=== PATIENT | male | born 1985 | race Caucasian/White ===

== ENCOUNTER → 2018-11-15 10:09 | Outpatient (CLI) | payer OTHER, MEDICAID, SELFPAY ==
--- NOTE | 2018-11-15 | DI.US.S_ITS ---
PROCEDURE: US ABDOMEN COMPLETE INDICATIONS: CHRONIC HEPATITIS C TECHNIQUE: Real-time scanning was performed of the abdominal and retroperitoneal organs, with image documentation. COMPARISON: None. FINDINGS: Liver: Liver is normal in size and homogeneous in echotexture. 2 hyperechoic focus involving the anterior left hepatic lobe measuring 1.3 x 1.1 x 1.0 cm. Gallbladder: No gallstones identified. Normal gallbladder wall. No pericholecystic fluid. Negative sonographic Case sign. Biliary ducts: Intrahepatic bile ducts are non-dilated. Extrahepatic bile duct caliber measures 5.7 mm. Normal is 6-7 mm or less in diameter, or 10 mm or less post-cholecystectomy. Pancreas: Not visualized. Spleen: Spleen is normal in size and homogeneous in echotexture. Kidneys: Kidneys are normal in size and echotexture. Right kidney measures 10.8 cm long; left kidney measures 11.3 cm long. No hydronephrosis or nephrolithiasis. No solid masses. Aorta: Visualized aorta is normal in caliber at less than 3 cm. Iliacs: Proximal common iliac arteries are normal in caliber at less than 2.5 cm. IVC: Intrahepatic inferior vena cava is patent. Miscellaneous: No free abdominal fluid. IMPRESSION: 1. Probable cavernous hemangioma present given the sonographic appearance. Recommend sequential follow up sonography at 6, 12 and 24 month intervals for surveillance. Dictated by: Yung TAM Interpreted: Yary Dugan MD on 11/15/2018 at 13:58 Approved by: Yary Dugan MD, PhD on 11/15/2018 at 15:38
== END ==
PROVIDERS: PCP Family Medicine; Visit Provider Nurse Practitioner Adult Health
DX: B18.2 Chronic viral hepatitis C (principal)
CPT/HCPCS: 76700

== ENCOUNTER 2023-05-17 07:28 | Inpatient (IN) | payer OTHER, MEDICAID, SELFPAY ==
[2023-05-17] VITALS (17 sets, daily range): BP systolic 100–141; BP diastolic 51–73; PULSE 86–113; RESP 15–25; TEMP 36.3–39.4; O2SAT 94–99; BMI 29.3
--- NOTE | 2023-05-17 07:30 | DI.US.S_ITS ---
PROCEDURE: US PERIPH VENOUS LOW EXTREM BI INDICATIONS: SWELLING BILATERAL. RED AND HOT LEFT LEG. TECHNIQUE: Real-time imaging, as well as color and pulse Doppler interrogation, were performed of the deep veins of both legs from the inguinal ligament to the popliteal fossa, with documentation of the visualized calf veins. COMPARISON: None. FINDINGS: Right: The common femoral, femoral, popliteal, and the visualized distal posterior tibial calf veins are normally compressible, and free of intraluminal thrombus. The peroneal and proximal and mid posterior tibial veins are not well visualized secondary to soft tissue edema. Color and pulse Doppler demonstrate normal phasic intravascular flow. There is normal augmentation response to distal compression maneuver. Left: The common femoral, femoral, popliteal, and the visualized distal posterior tibial calf veins are normally compressible, and free of intraluminal thrombus. . The peroneal and proximal and mid posterior tibial veins are not well visualized secondary to soft tissue edema. Color and pulse Doppler demonstrate normal phasic intravascular flow. There is normal augmentation response to distal compression maneuver. IMPRESSION: No findings of deep venous thrombosis in either lower extremity. Bilateral peroneal and proximal/mid posterior tibial veins are visualized. Approved by: Marta Castellon M.D. on 05/17/2023 at 8:29
--- NOTE | 2023-05-17 07:30 | DI.RAD.S_ITS ---
PROCEDURE: XR CHEST 1V INDICATIONS: n/v/d, cellulitis leg TECHNIQUE: One view of the chest was acquired. COMPARISON: None. FINDINGS: Surgical changes and devices: None. Lungs and pleura: Lungs are clear. No pleural effusions or pneumothorax. Mediastinum: Mediastinal contours appear normal. Heart size is normal. Bones and chest wall: No suspicious bony lesions. Overlying soft tissues appear unremarkable. IMPRESSION: No acute pulmonary process. Dictated by: Melinda Newman M.D. on 05/17/2023 at 8:15 Approved by: Melinda Newman M.D. on 05/17/2023 at 8:15
--- NOTE | 2023-05-17 07:33 | ED_ITS ---
HPI - General Adult General Chief complaint: GI Bleed Stated complaint: GI bleed/ skin infection Time Seen by Provider: 05/17/23 07:29 Source: patient, EMS, RN notes reviewed and old records reviewed Mode of arrival: EMS Limitations: no limitations History of Present Illness HPI narrative: 38-year-old male with a history of chronic opiate abuse, patient presents with multiple complaints. Patient states he has had bilateral lower extremity swelling for the past month but for at least several days his right lower extremities become extremely red swollen and painful. Patient states he has had fevers and chills. No cold cough congestion but has had nausea and vomiting and has not been able to keep anything down over the last several days. Also described black tarry stools with diarrhea like stools. Patient denies any chest pain, no shortness of breath. He denies any abdominal back or flank pain. Denies urinary symptoms. Patient states he did not have any drainage from the sites. States that he uses fentanyl but states he has not ever injected. Patient states no daily prescription medications. Denies any prior surgeries. No known drug allergies. Does smoke tobacco daily, denies regular alcohol use, no marijuana but states that is use narcotics. He presents via EMS was noted to be tachycardic in the field. Related Data Home Medications Medication Instructions Recorded Confirmed No Known Home Medications 01/27/23 01/27/23 Previous Rx's Medication Instructions Recorded bumetanide 0.5 mg tablet 0.5 mg PO DAILY edema #30 tabs 01/27/23 potassium chloride 10 mEq 10 meq PO DAILY #30 tabs 01/27/23 tablet,extended release(part/cryst) Allergies Allergy/AdvReac Type Severity Reaction Status Date / Time No Known Drug Allergies Allergy Unverified 01/27/23 10:07 Review of Systems Review of Systems ROS Unobtainable: All systems reviewed & are unremarkable except as noted in HPI and below Patient History Medical History Fentanyl use disorder, mild Tobacco dependence History of heroin use Morbid obesity due to excess calories Social History household members: significant other Smoking Status: Current every day smoker alcohol intake: never Exam Narrative Exam Narrative: GENERAL: Alert and oriented x three, male who appears pale in mild distress. HEENT: Head normocephalic, atraumatic, EOMI, pale conjunctiva bilaterally, pupils reactive, face symmetric, moist mucous membranes NECK: Supple, full range of motion CARDIOVASCULAR: Tachycardic but regular rate and rhythm without murmurs, rubs or gallops. No JVD appreciated. Patient does have bilateral lower extremity swelling but right significantly greater than left. RESPIRATORY: Breath sounds equal bilaterally, no wheezes rales or rhonchi. No tachypnea or accessory muscle use. ABDOMEN: Soft, nontender. Nondistended. Normoactive bowel sounds all 4 quadrants. No guarding or rebound, rigidity, no mass : No CVA tenderness EXTREMITIES: Normal range of motion, no clubbing. Patient has bilateral lower extremity edema, has what appears to be some chronic venous stasis changes with scabbing of anterior shins bilaterally right lower extremity is much more swollen, erythematous and hot particularly over the foot ankle and aranda. No appreciable areas of abscess noted. Patient does have range of motion. Positive pulses bilateral lower extremities. Sensation intact bilateral lower extremities. Neurovascularly intact NEUROLOGICAL: Cranial nerves II through XII grossly intact. Moving all extremities SKIN: Warm, dry, no petechiae, patient has skin changes noted above. No obvious large lacerations or wounds. Initial Vital Signs Initial Vital Signs: Vital Signs Temperature 102.9 F H 05/17/23 07:32 Pulse Rate 111 H 05/17/23 07:32 Respiratory Rate 20 05/17/23 07:32 Blood Pressure 141/65 H 05/17/23 07:32 Pulse Oximetry 99 05/17/23 07:32 Oxygen Delivery Method Room Air 05/17/23 07:32 Course Orders Ordered: ED Orders 05/18/23 04:40 Complete Blood Count AUTO DIFF DAILY Comprehensive Metabolic Panel DAILY Hemoglobin A1C% w Est Avg Glu Routine Magnesium DAILY 05/19/23 05:00 Complete Blood Count AUTO DIFF DAILY Comprehensive Metabolic Panel DAILY Magnesium DAILY 05/20/23 05:00 Complete Blood Count AUTO DIFF DAILY Comprehensive Metabolic Panel DAILY Magnesium DAILY Acetaminophen (Acetaminophen 325 Mg Tablet) 975 mg PO Q6H PRN PRN Reason: Fever/Mild Pain (1-3) Last Admin: 05/17/23 17:12 Dose: 975 mg Documented By: Hydromorphone HCl (Hydromorphone 2 Mg Inj) 2 mg IV Q2H PRN PRN Reason: Pain, Severe (7-10) Last Admin: 05/18/23 06:25 Dose: 2 mg Documented By: MS(2) Admin: 05/18/23 04:33 Dose: 2 mg Documented By: MS(2) Admin: 05/18/23 02:37 Dose: 2 mg Documented By: MS(2) Admin: 05/18/23 00:43 Dose: 2 mg Documented By: MS(2) Admin: 05/17/23 22:41 Dose: 2 mg Documented By: MS(2) Admin: 05/17/23 20:23 Dose: 2 mg Documented By: MS(2) Admin: 05/17/23 18:28 Dose: 2 mg Documented By: MS Ceftriaxone Sodium 1,000 mg/ (Sodium Chloride) 100 mls @ 200 mls/hr IV Q24H ANA Stop: 05/24/23 08:59 Vancomycin HCl (Vancomycin) 1,250 mg in 250 mls @ 250 mls/hr IV Q8H ANA Last Infusion: 05/18/23 01:43 Dose: Infused Documented By: MS(2) Admin: 05/18/23 00:43 Dose: 250 mls/hr Documented By: MS(2) Infusion: 05/17/23 18:23 Dose: Infused Documented By: Admin: 05/17/23 17:12 Dose: 250 mls/hr Documented By: MS Sodium Chloride (Normal Saline 0.9%) 1,000 mls @ 100 mls/hr IV CONT ANA Last Admin: 05/18/23 00:09 Dose: 100 mls/hr Documented By: MS(2) POTASSIUM CHLORIDE IN WATER (Potassium Cl 10 Meq/100 Ml Zunilda) 10 meq in 100 mls @ 100 mls/hr IV Q1H ANA Stop: 05/18/23 12:44 Last Admin: 05/18/23 06:48 Dose: 100 mls/hr Documented By: MS(2) Lorazepam (Lorazepam 2 Mg/Ml Inj) 1 mg IV Q4HR PRN PRN Reason: Anxiety Last Admin: 05/18/23 04:34 Dose: 1 mg Documented By: MS(2) Admin: 05/18/23 00:42 Dose: 1 mg Documented By: MS(2) Admin: 05/17/23 20:17 Dose: 1 mg Documented By: MS(2) Admin: 05/17/23 16:35 Dose: 1 mg Documented By: MS Naloxone HCl (Naloxone 0.4 Mg/Ml Vial) 0.2 mg IV Q2MIN PRN PRN Reason: Opiate Reversal Nicotine (Nicotine 21 Mg Patch) 21 mg TOP DAILY [facility] Last Admin: 05/17/23 18:28 Dose: 21 mg Documented By: MS Ondansetron HCl (Ondansetron 4 Mg/2 Ml Inj) 4 mg IV Q4HR PRN PRN Reason: Nausea And Vomiting Last Admin: 05/17/23 18:28 Dose: 4 mg Documented By: Admin: 05/17/23 10:17 Dose: 4 mg Documented By: MS Oxycodone HCl (Oxycodone Ir 10 Mg Tablet) 10 mg PO Q3H PRN PRN Reason: Pain, Severe (7-10) Last Admin: 05/18/23 05:41 Dose: 10 mg Documented By: MS(2) Admin: 05/17/23 23:33 Dose: 10 mg Documented By: MS(2) Admin: 05/17/23 18:50 Dose: 10 mg Documented By: Admin: 05/17/23 16:10 Dose: 10 mg Documented By: Admin: 05/17/23 13:30 Dose: 10 mg Documented By: Admin: 05/17/23 10:47 Dose: 10 mg Documented By: MS Oxycodone HCl (Oxycodone Ir 5 Mg Tablet) 5 mg PO Q3H PRN PRN Reason: Pain, Moderate (4-6) Last Admin: 05/17/23 20:17 Dose: 5 mg Documented By: MS(2) Admin: 05/17/23 15:05 Dose: 5 mg Documented By: Admin: 05/17/23 11:09 Dose: 5 mg Documented By: MS Pantoprazole Sodium (Pantoprazole 40 Mg Vial) 40 mg IV BID [facility] Last Admin: 05/17/23 20:17 Dose: 40 mg Documented By: MS(2) Admin: 05/17/23 15:05 Dose: 40 mg Documented By: MS Potassium Chloride (Potassium Chloride 20 Meq Tab) 40 meq PO BIDWM [facility] Last Admin: 05/17/23 17:11 Dose: 40 meq Documented By: Admin: 05/17/23 13:14 Dose: 40 meq Documented By: MS Vancomycin HCl (Vancomycin Per Pharmacy) 1 request MISC NOW PRN PRN Reason: swelling Vancomycin HCl (Vancomycin Trough) 1 request MISC NOW ONE Stop: 05/18/23 16:31 Discontinued Medications Acetaminophen (Acetaminophen 325 Mg Tablet) 975 mg PO NOW ONE Stop: 05/17/23 07:44 Last Admin: 05/17/23 07:50 Dose: 975 mg Documented By: SISI Hydromorphone HCl (Hydromorphone 0.5 Mg Inj) 1 mg IV Q2H PRN PRN Reason: Pain, Severe (7-10) Last Admin: 05/17/23 13:46 Dose: 1 mg Documented By: Admin: 05/17/23 11:46 Dose: 1 mg Documented By: Admin: 05/17/23 10:15 Dose: 1 mg Documented By: Hydromorphone HCl (Hydromorphone 0.5 Mg Inj) 2 mg IV Q2H PRN PRN Reason: Pain, Severe (7-10) Last Admin: 05/17/23 16:34 Dose: 2 mg Documented By: Ceftriaxone Sodium 2,000 mg/ (Sodium Chloride) 100 mls @ 200 mls/hr IV NOW ONE Stop: 05/17/23 07:31 Last Infusion: 05/17/23 08:43 Dose: Infused Documented By: Infusion: 05/17/23 08:17 Dose: 200 mls/hr Documented By: Admin: 05/17/23 07:38 Dose: 200 mls/hr Documented By: SISI Vancomycin HCl/Dextrose (Vancomycin) 1,500 mg in 300 mls @ 200 mls/hr IV NOW ONE Stop: 05/17/23 08:59 Last Infusion: 05/17/23 10:26 Dose: Infused Documented By: Infusion: 05/17/23 09:50 Dose: 200 mls/hr Documented By: Admin: 05/17/23 08:46 Dose: 200 mls/hr Documented By: JIMMY Lactated Ringer's (Lactated Ringers) 1,000 mls @ 1,000 mls/hr IV BOLUS ONE Stop: 05/17/23 08:42 Last Infusion: 05/17/23 08:43 Dose: Infused Documented By: Admin: 05/17/23 07:49 Dose: 1,000 mls/hr Documented By: SISI Sodium Chloride (Normal Saline 0.9%) 2,535 mls @ 845 mls/hr 30 ml/kg infuse over 3 hr (2535 ml) IV NOW ONE Stop: 05/17/23 11:41 Last Admin: 05/17/23 08:56 Dose: Not Given Documented By: RB Lactated Ringer's (Lactated Ringers) 1,535 mls @ 767.5 mls/hr IV CONT ANA Last Infusion: 05/17/23 11:20 Dose: Infused Documented By: Infusion: 05/17/23 09:50 Dose: 767.5 mls/hr Documented By: Admin: 05/17/23 09:09 Dose: 767.5 mls/hr Documented By: RB Sodium Chloride (Normal Saline 0.9%) 1,000 mls @ 100 mls/hr IV CONT ANA Last Admin: 05/17/23 23:15 Dose: Not Given Documented By: MS(2) Vancomycin HCl (Vancomycin) 1,250 mg in 250 mls @ 250 mls/hr IV Q8H [facility] Last Admin: 05/17/23 23:15 Dose: Not Given Documented By: MS(2) Sodium Chloride (Normal Saline 0.9%) 1,000 mls @ 100 mls/hr IV CONT [facility] Last Admin: 05/17/23 11:25 Dose: 100 mls/hr Documented By: Ketorolac Tromethamine (Ketorolac 30 Mg/Ml Vial) 15 mg IV NOW ONE Stop: 05/17/23 07:33 Last Admin: 05/17/23 07:38 Dose: 15 mg Documented By: SISI Ondansetron HCl (Ondansetron 4 Mg/2 Ml Inj) 4 mg IV Q6HR PRN PRN Reason: Nausea And Vomiting Last Admin: 05/17/23 07:38 Dose: 4 mg Documented By: SISI Potassium Chloride (Potassium Chloride 20 Meq Tab) 40 meq PO NOW ONE Stop: 05/17/23 08:09 Last Admin: 05/17/23 08:17 Dose: 40 meq Documented By: JOSE Vancomycin HCl (Vancomycin Trough) 1 request MISC NOW ONE Stop: 05/18/23 09:31 Vital Signs Vital signs: Vital Signs - 8 hr 05/17/23 07:32 05/17/23 07:37 05/17/23 07:38 Temperature 102.9 F H Pulse Rate 111 H 109 H 110 H Respiratory Rate 20 15 20 Blood Pressure 141/65 H Pulse Oximetry 99 98 98 Oxygen Delivery Method Room Air 05/17/23 07:38 05/17/23 07:40 05/17/23 07:40 Temperature Pulse Rate 113 H Respiratory Rate 25 H Blood Pressure 116/60 123/61 Pulse Oximetry 98 Oxygen Delivery Method 05/17/23 08:00 05/17/23 08:24 05/17/23 08:30 Temperature 100.7 F H Pulse Rate 106 H Respiratory Rate 18 Blood Pressure 124/63 Pulse Oximetry 98 Oxygen Delivery Method 05/17/23 08:30 05/17/23 08:40 05/17/23 08:40 Temperature Pulse Rate 99 H 96 H Respiratory Rate 20 22 Blood Pressure 108/62 Pulse Oximetry 98 96 Oxygen Delivery Method Room Air 05/17/23 08:50 05/17/23 08:50 Temperature Pulse Rate 96 H Respiratory Rate 20 Blood Pressure 107/63 Pulse Oximetry 97 Oxygen Delivery Method Medical Decision Making Lab Data 05/18/23 04:40 05/18/23 04:40 Labs: Lab Results 05/17/23 Range/Units 07:38 WBC 24.9 H (4.5-11.0) X10^3/uL RBC 4.20 L (4.5-5.9) X10^6/uL Hgb 11.3 L (13.5-17.5) g/dL Hct 33.5 L (41-53) % MCV 79.9 L (80-100) fL MCH 26.8 (26-34) PG MCHC 33.6 (30-36) % RDW 13.3 (11.6-14.8) % Plt Count 464 H (150-400) X10^3/uL Neut % (Auto) Not Reportable Lymph % (Auto) Not Reportable [place] % (Auto) Not Reportable Eos % (Auto) Not Reportable Baso % (Auto) Not Reportable Lymph # (Auto) Not Reportable [place] # (Auto) Not Reportable Baso # (Auto) Not Reportable Total Counted 100 Seg Neutrophils % 86.0 H (38-70) % Band Neutrophils % 1.0 L (3-7) % Lymphocytes % (Manual) 7.0 L (25-45) % Monocytes % (Manual) 6.0 (2-11) % Neutrophils # (Manual) 69469 H (7838-4540) /uL RBC Morphology Normal morphology PT 16.4 H (9.4-12.5) SECONDS INR 1.4 H (0.9-1.3) APTT 47 H (25.1-36.5) SECONDS Sodium 131 L (137-145) mmol/L Potassium 2.7 L* (3.4-5.1) mmol/L Chloride 94 L (98-107) mmol/L Carbon Dioxide 23 (22-32) mmol/L BUN 8 L (9-20) mg/dL Creatinine 0.60 L (0.66-1.25) mg/dL Estimated GFR > 60 (>60) mL/min BUN/Creatinine Ratio 13.3 (6-22) Glucose 114 H (70-100) mg/dL Lactate 1.4 (0.7-2.1) mmol/L Calcium 8.3 L (8.4-10.2) mg/dL Total Bilirubin 1.4 H (0.2-1.3) mg/dL AST 29 (17-59) IU/L ALT 29 (<50) IU/L Alkaline Phosphatase 119 (38-126) U/L Total Creatine Kinase 72 (55-170) U/L Troponin I < 0.012 (0.01-0.034) ng/mL NT-Pro-B Natriuret Pep 717 H (<125) pg/mL Total Protein 7.3 (6.3-8.2) g/dL Albumin 3.3 L (3.5-5.0) g/dL Globulin 4.0 (1.7-4.1) g/dL Albumin/Globulin Ratio 0.8 L (1.0-2.8) Procalcitonin 0.59 H (<0.5) ng/mL Blood Type O Positive Antibody Screen Negative Imaging Data Chest x-ray: Radiologist's Impression: Close Vascular Ultrasound (Signed) Marta Castellon - 05/17/23 Chest X-Ray (Signed) Melinda Newman - 05/17/23 Abdomen Ultrasound (Signed) Yary Dugan - 11/15/[address] [address] XRay Report Signed Patient: Michel Gutierrez MR#: [id number] : 1985 Acct:[id number] Age/Sex: 38 / M Date of Service: 05/17/23 Loc: ED Accession Number: [id number] Procedure: XR chest 1V Ordering Provider: Marialuisa Hernandez D.O. PROCEDURE: XR CHEST 1V INDICATIONS: n/v/d, cellulitis leg TECHNIQUE: One view of the chest was acquired. COMPARISON: None. FINDINGS: Surgical changes and devices: None. Lungs and pleura: Lungs are clear. No pleural effusions or pneumothorax. Mediastinum: Mediastinal contours appear normal. Heart size is normal. Bones and chest wall: No suspicious bony lesions. Overlying soft tissues appear unremarkable. IMPRESSION: No acute pulmonary process. Dictated by: Melinda Newman M.D. on 05/17/2023 at 8:15 Approved by: Melinda Newman M.D. on 05/17/2023 at 8:15 US - DVT: Radiologist's Impression: Michel Gutierrez??38??M??1985 ? Allergy/Adv: No Known Drug Allergies (More??) Close Vascular Ultrasound (Signed) Marta Castellon - 05/17/23 Chest X-Ray (Signed) Melinda Newman - 05/17/23 Abdomen Ultrasound (Signed) Yary Dugan - 11/15/18 [facility] [address] Ultrasound Report Signed Patient: Michel Gutierrez MR#: [id number] : 1985 Acct:[id number] Age/Sex: 38 / M Date of Service: 05/17/23 Loc: ED Accession Number: [id number] Procedure: US periph venous low extrem bi Ordering Provider: Marialuisa Hernandez D.O. PROCEDURE: US PERIPH VENOUS LOW EXTREM BI INDICATIONS: SWELLING BILATERAL. RED AND HOT LEFT LEG. TECHNIQUE: Real-time imaging, as well as color and pulse Doppler interrogation, were performed of the deep veins of both legs from the inguinal ligament to the popliteal fossa, with documentation of the visualized calf veins. COMPARISON: None. FINDINGS: Right: The common femoral, femoral, popliteal, and the visualized distal posterior tibial calf veins are normally compressible, and free of intraluminal thrombus. The peroneal and proximal and mid posterior tibial veins are not well visualized secondary to soft tissue edema. Color and pulse Doppler demonstrate normal phasic intravascular flow. There is normal augmentation response to distal compression maneuver. Left: The common femoral, femoral, popliteal, and the visualized distal posterior tibial calf veins are normally compressible, and free of intraluminal thrombus. . The peroneal and proximal and mid posterior tibial veins are not well visualized secondary to soft tissue edema. Color and pulse Doppler demonstrate normal phasic intravascular flow. There is normal augmentation response to distal compression maneuver. IMPRESSION: No findings of deep venous thrombosis in either lower extremity. Bilateral peroneal and proximal/mid posterior tibial veins are visualized. Approved by: Marta Castellon M.D. on 05/17/2023 at 8:29 ECG Data Attestation: I personally reviewed and interpreted this ECG as follows: Prior ECG tracings: not available for review Interpretation: Sinus rhythm rate of 100 MD 138 QRS 86 QTC 451. No acute ST elevation or depression appreciated. No prior available. [facility] Narrative Medical decision making narrative: 38-year-old male with history of known narcotic opiate use who presents with complaint of nausea vomiting diarrhea black tarry stools on 2 occasions. As well as erythema and what appears to be cellulitis of his right lower extremity. Patient is also pale and tachycardic. Suspect he has cellulitis possibly sepsis but also suspect some anemia based on exam. Labs., imaging were ordered including DVT ultrasound as patient has had chronic lower extremity swelling with new increasing redness lately hand function but rule out DVT. Labs including type and screen were obtained. Labs show leukocytosis of 24, hemoglobin of 11, no priors for comparison with microcytosis and platelets of 464. Shift with 86% neutrophils and 21,663 manual count. INR is 1.4 PTT is 47. Patient's sodium is 131 potassium 2.7 consistent with emesis, chloride 94, creatinine 0.6 with a glucose of 114, total bili is 1.4 with a BNP of 717, protocol 0.59. EKG. EKG show sinus tach nonspecific T-wave change. Chest x-ray chest x-ray is negative for any acute process. Ultrasound bilateral lower extremities state of for DVT. Patient was given Rocephin and vancomycin for broad-spectrum coverage. Patient does meet sepsis criteria was changed to 30 cc/kilos bolus. Patient pretty significant cellulitis of the lower extremity does not appear would respond appropriately to oral antibiotics. Suspect would need admission for sepsis and cellulitis. Patient also received a dose of Toradol for pain as well as fever and a dose of Tylenol. Spoke with Dr. Fofana, hospitalist: Plan for observation. Updated patient he is agreeable for admission. Heart rate appears to be somewhat improved after fluids. Discharge Plan Departure Patient Disposition: Admitted as Observation Clinical Impression: Sepsis, Cellulitis of leg, right, Hypokalemia Admit Date/Time: 05/17/23 08:53 Admit Provider: Sanjiv Fofana
[2023-05-17] MEDS: cefTRIAXone 2,000 MG in SODIUM CHLORIDE 0.9% 100 ML 200 MG IV (07:38)
[2023-05-17] MEDS: ONDANSETRON 4 MG/2 ML INJ IV ×3 (07:38→18:28)
[2023-05-17] MEDS: KETOROLAC 30 MG/ML VIAL 15 MG IV (07:38)
[2023-05-17] MEDS: LACTATED RINGERS 1,000 ML 1000 ML IV (07:49)
[2023-05-17] MEDS: ACETAMINOPHEN 325 MG TABLET 975 MG PO ×2 (07:50→17:12)
[2023-05-17 07:59] LABS: INR 1.4 (0.9-1.3); Prothrombin Time 16.4 SECONDS (9.4-12.5)
[2023-05-17 08:02] LABS: Add Manual Diff / Slide Review YES; Hematocrit 33.5 % (41-53); Hemoglobin 11.3 g/dL (13.5-17.5); Mean Corpuscular HGB Conc 33.6 % (30-36); Mean Corpuscular Hemoglobin 26.8 PG (26-34); Mean Corpuscular Volume 79.9 fL (80-100); Platelet Count 464 X10^3/uL (150-400); Red Cell Distribution Width 13.3 % (11.6-14.8); White Blood Cell Count 24.9 X10^3/uL (4.5-11.0)
[2023-05-17 08:04] LABS: Alanine Aminotransferase 29 IU/L (<50); Albumin 3.3 g/dL (3.5-5.0); Albumin Globulin Ratio 0.8 (1.0-2.8); Alkaline Phosphatase 119 U/L (38-126); Aspartate Aminotransferase 29 IU/L (17-59); BUN Creatinine Ratio 13.3 (6-22); Bilirubin Total 1.4 mg/dL (0.2-1.3); Blood Urea Nitrogen 8 mg/dL (9-20); Calcium 8.3 mg/dL (8.4-10.2); Carbon Dioxide 23 mmol/L (22-32); Chloride 94 mmol/L (98-107); Creatine Kinase 72 U/L (55-170); Estimated Glomerular Filt Rate > 60 mL/min (>60); Glucose 114 mg/dL (70-100); HEMOLYSIS 16 (0-50); Lactate (Lactic Acid) 1.4 mmol/L (0.7-2.1); Sodium 131 mmol/L (137-145); Total Protein 7.3 g/dL (6.3-8.2)
[2023-05-17 08:07] LABS: Potassium 2.7 mmol/L (3.4-5.1)
[2023-05-17 08:08] LABS: PTT Partial Thromboplastin Tim 47 SECONDS (25.1-36.5)
[2023-05-17 08:17] LABS: NT-proBNP (BNP-Adult 18+) 717 pg/mL (<125); Troponin I < 0.012 ng/mL (0.01-0.034)
[2023-05-17] MEDS: POTASSIUM CHLORIDE 20 MEQ TAB 40 MEQ PO ×3 (08:17→17:11)
[2023-05-17 08:21] LABS: Procalcitonin 0.59 ng/mL (<0.5)
[2023-05-17 08:34] LABS: Neutrophils Absolute Manual 21663 /uL (3000-5900); RBC Morphology Normal Morphology; Total Cells Counted 100
[2023-05-17] MEDS: VANCOMYCIN 1,500 MG/300 ML PIGGYBACK 200 MG IV (08:46)
--- NOTE | 2023-05-17 08:46 | PC.NURSE ---
This RN asked provider about order for sepsis fluids that was placed. This RN inquired if provider wanted to stay with Lactated Ringers or move to normal saline as ordered. Provider stated Lactated Ringers please This RN then asked if they wanted to include the fluids into the total that the patient already received. Provider stated yes include the fluids already received into the total ordered. This RN placed stop request order on the current order that provider placed and placed new order for the remaining fluids over two hours remaining per provider in lactated ringers.
[2023-05-17] MEDS: LACTATED RINGERS 767.5 ML IV (09:09)
[2023-05-17] MEDS: HYDROMORPHONE 0.5 MG INJ 1 MG IV ×3 (10:15→13:46)
[2023-05-17] MEDS: OXYCODONE IR 10 MG TABLET PO ×5 (10:47→23:33)
[2023-05-17] MEDS: OXYCODONE IR 5 MG TABLET PO ×3 (11:09→20:17)
[2023-05-17] MEDS: SODIUM CHLORIDE 0.9% 1,000 ML 100 ML IV (11:25)
--- NOTE | 2023-05-17 12:43 | PM.HP.1 ---
History of Present Illness History of Present Illness Date Patient Seen: 05/17/23 Time Patient Seen: 12:43 Chief complaint: GI blees/ skin infection Narrative: This is a 38 year old male with PMH of opiate use who presents with worsening R leg pain for the past week. He denies fever, chills but has noted worsening redness and pain of his R leg, just above his ankle predominantly for the past week. It has been slowly getting worse. He was unable to tolerate much oral intake for the past two days, and has not been able to use as much fentanyl due to some nausea. He also reported a dark stool, relates this to taking a lot of ibuprofen for his pain. He reports for the past few months he has had worsening LE swelling bilaterally. He denies chest pain, palpitations, or orthopnea. [facility] Medical History Fentanyl use disorder, mild Tobacco dependence History of heroin use Morbid obesity due to excess calories Social History household members: significant other Smoking Status: Current every day smoker alcohol intake: never Meds Home Medications and Allergies Home Medications Medication Instructions Recorded Confirmed Type No Known Home Medications 01/27/23 01/27/23 History bumetanide 0.5 mg tablet 0.5 mg PO DAILY edema #30 tabs 01/27/23 01/27/23 Rx potassium chloride 10 mEq 10 meq PO DAILY #30 tabs 01/27/23 01/27/23 Rx tablet,extended release(part/cryst) Allergies Allergy/AdvReac Type Severity Reaction Status Date / Time No Known Drug Allergies Allergy Unverified 01/27/23 10:07 Review of Systems Review of Systems Narrative: All other systems reviewed with the patient and are negative unless otherwise stated. Exam Vital Signs (past 8 hours): - 05/17/23 07:32 05/17/23 07:37 05/17/23 07:38 Temperature 102.9 F H Pulse Rate 111 H 109 H 110 H Respiratory Rate 20 15 20 Blood Pressure 141/65 H Pulse Oximetry 99 98 98 Oxygen Delivery Method Room Air 05/17/23 07:38 05/17/23 07:40 05/17/23 07:40 Temperature Pulse Rate 113 H Respiratory Rate 25 H Blood Pressure 116/60 123/61 Pulse Oximetry 98 Oxygen Delivery Method 05/17/23 08:00 05/17/23 08:24 05/17/23 08:30 Temperature 100.7 F H Pulse Rate 106 H Respiratory Rate 18 Blood Pressure 124/63 Pulse Oximetry 98 Oxygen Delivery Method 05/17/23 08:30 05/17/23 08:40 05/17/23 08:40 Temperature Pulse Rate 99 H 96 H Respiratory Rate 20 22 Blood Pressure 108/62 Pulse Oximetry 98 96 Oxygen Delivery Method Room Air 05/17/23 08:50 05/17/23 08:50 05/17/23 09:00 Temperature Pulse Rate 96 H Respiratory Rate 20 Blood Pressure 107/63 111/73 Pulse Oximetry 97 Oxygen Delivery Method 05/17/23 09:00 05/17/23 09:10 05/17/23 09:10 Temperature Pulse Rate 95 H 93 H Respiratory Rate 24 18 Blood Pressure 106/70 Pulse Oximetry 98 98 Oxygen Delivery Method 05/17/23 09:20 05/17/23 09:20 05/17/23 09:30 Temperature Pulse Rate 89 86 Respiratory Rate 15 17 Blood Pressure 107/68 Pulse Oximetry 97 94 Oxygen Delivery Method 05/17/23 09:30 Temperature Pulse Rate Respiratory Rate Blood Pressure 118/72 Pulse Oximetry Oxygen Delivery Method Oxygen Delivery Method Room Air Narrative Exam Narrative: General:? Patient is well developed and well nourished, in no distress at this time. HEENT:? Normocephalic, atraumatic, extraocular muscles intact, oral pharynx is clear and mucous membranes are moist. Neck: supple and symmetric, trachea is midline, no cervical adenopathy. Negative for JVD Chest:? Normal AP diameter and contour without kyphoscoliosis, no tachypnea, equal chest rise bilaterally. Lungs:? CTA b/l no wheezing rhonchi or rales. Cardio:?RRR no m/r/g. Abdomen: S NT ND. No CVA tenderness. Musculoskeletal:? Muscle strength and tone are equal within normal limits, no deformity. Extremities: No edema or joint effusions. No cyanosis or clubbing. Skin:? Pale,? Warm to touch,dry and intact without rashes, ulcerations or petechiae.? Neuro:? Alert and orientated x3,? sensation to touch intact in all extremities, no gross deficits noted of cranial nerves. Psych:? Patient has a well-kept appearance, appropriate affect, mental status attitude thought context and judgment are appropriate for age. Objective Labs 05/17/23 07:38 05/17/23 07:38 Labs: Laboratory Results - last 24 hr 05/17/23 07:38 WBC 24.9 H RBC 4.20 L Hgb 11.3 L Hct 33.5 L MCV 79.9 L MCH 26.8 MCHC 33.6 RDW 13.3 Plt Count 464 H Neut % (Auto) Not Reportable Lymph % (Auto) Not Reportable [place] % (Auto) Not Reportable Eos % (Auto) Not Reportable Baso % (Auto) Not Reportable Lymph # (Auto) Not Reportable [place] # (Auto) Not Reportable Baso # (Auto) Not Reportable Total Counted 100 Seg Neutrophils % 86.0 H Band Neutrophils % 1.0 L Lymphocytes % (Manual) 7.0 L Monocytes % (Manual) 6.0 Neutrophils # (Manual) 74903 H RBC Morphology Normal morphology PT 16.4 H INR 1.4 H APTT 47 H Sodium 131 L Potassium 2.7 L* Chloride 94 L Carbon Dioxide 23 BUN 8 L Creatinine 0.60 L Estimated GFR > 60 BUN/Creatinine Ratio 13.3 Glucose 114 H Lactate 1.4 Calcium 8.3 L Total Bilirubin 1.4 H AST 29 ALT 29 Alkaline Phosphatase 119 Total Creatine Kinase 72 Troponin I < 0.012 NT-Pro-B Natriuret Pep 717 H Total Protein 7.3 Albumin 3.3 L Globulin 4.0 Albumin/Globulin Ratio 0.8 L Procalcitonin 0.59 H Blood Type O Positive Antibody Screen Negative Assessment & Plan Assessment & Plan narrative: 1. RLE cellulitis, r/o sepsis - continue ceftriaxone and vancomycin per pharmacy. - check CT to r/o abscess given appearance - may need increased opiate medications for pain with history of fentanyl use - SOFA score currently 1 for elevated bilirubin level, continue to monitor 2. Bilateral LE edema - check echo to rule out heart failure, though no dyspnea reported - consider diuresis, but will hold additional fluids for now 3. Chronic fentanyl use. - will likely need higher doses of opiates for pain control in setting of cellulitis and infection. - for now continue oxycodone 10 mg q3 hrn, prn dilaudid for breakthrough. 4. Hypokalemia and hyponatremia, acute, present on admission - presume secondary to fluid losses. Will stop additional IV fluids at this time pending above echo for b/l LE edema 5. Possible GI bleeding - patient with reported one episode of melena. Will continue to monitor, start IV PPI BID, hold NSAIDS which patient has been taking. - if h/h continues to fall will consider surgery consultation, though suspect his h/h to stabilize quickly. Code: Full I have utilized all available immediate resources to obtain, update, or review the patient's current medications. Dispo: Admitted inpatient, his stay is expected to exceed two midnights. Discussed with ER provider to contribute to above history, and coordination of assessment and plan documented above.
--- NOTE | 2023-05-17 12:44 | DI.CT.S_ITS ---
PROCEDURE: CT LE RT W CON INDICATIONS: ? fluid collection / abscess. TECHNIQUE: After the administration of intravenous contrast, 3 mm axial sections acquired of the left lower extremity, with coronal and sagittal reformats. COMPARISON: [facility], , PERIP VENOUS LOW EXTREM BI, 05/17/2023, 7:48. FINDINGS: Image quality: Mild motion artifacts. Bones: No fracture or dislocation. No bony erosion or periosteal reaction. Mild degenerative joint disease in left knee and left ankle. Soft tissues: There is diffuse soft tissue swelling. There is a subcutaneous fluid collection in the anterior aspect of the ankle measuring 3.3 x 7.7 x 9.8 cm. The fluid collection demonstrates subtle peripheral enhancement. Small knee joint effusion. IMPRESSION: 1. There is 3.3 x 7.7 x 9.8 cm subcutaneous fluid collection in the anterior aspect of the left ankle measuring demonstrating subtle peripheral enhancement. Cannot rule out abscess. 2. Diffuse soft tissue swelling in the distal of left lower extremity, suspicious for cellulitis. 3. Small knee joint effusion. Dictated by: Kelvin German M.D. on 05/17/2023 at 15:19 Approved by: Kelvin German M.D. on 05/17/2023 at 15:35
--- NOTE | 2023-05-17 12:47 | DI.ECHO.S_ITS ---
[place] [facility]---------+ [facility] +---------+ : : [address] [place] : : : : [id number] : : : : Phone: [phone]+ Echocardiogram Report + + :Name: JUANITO SOARES Study Date: 05/17/2023 Height: 75 in : :[facility] ReadingLocation: Weight: 235 lb: : Gender: Male BSA: 2.4 m2 : :: 1985 Age: 38 yrs : :Reason For Study: B/L LOWER EXTREMITY EDEMA : :Ordering Physician: ANGÉLICA, : :POWER CHAKRABORTY Performed By: Lorena Drake : :Referring: POWER LINDSAY : + + Interpretation Summary The ejection fraction is estimated to be 60-65%. Diastolic parameters suggest probable normal left ventricular diastolic function and normal filling pressures. The right ventricle is borderline dilated. The right ventricular systolic function is normal. No significant valvular abnormalities. Pulmonary artery pressures cannot be estimated because of the lack of a measurable TR jet velocity but the IVC suggests a CVP of around 3 mmHg. Procedure: A two-dimensional transthoracic echocardiogram with color flow and Doppler was performed. The study quality was technically adequate. There is no prior echocardiogram noted for this patient. The patient was in sinus rhythm with heart rates between 96-113 bpm during the exam. Left Ventricle: The left ventricle is normal in size and wall thickness. The ejection fraction is estimated to be 60-65%. Diastolic parameters suggest probable normal left ventricular diastolic function and normal filling pressures. Right Ventricle: The right ventricle is borderline dilated. The right ventricular systolic function is normal. Atria: The left atrial size is normal. Right atrial size is normal. There is no Doppler evidence for an interatrial shunt. Mitral Valve: The mitral valve is normal in structure and function. There is no mitral regurgitation noted. Aortic Valve: The aortic valve is trileaflet. The aortic valve opens well. There is no aortic valve stenosis. No aortic regurgitation is present. Tricuspid Valve: The tricuspid valve is normal in structure and function. There is trace tricuspid regurgitation. Pulmonary artery pressures cannot be estimated because of the lack of a measurable TR jet velocity but the IVC suggests a CVP of around 3 mmHg. Pulmonic Valve: The pulmonic valve leaflets are thin and pliable; valve motion is normal. There is no pulmonic valvular regurgitation. Great Vessels: The aortic root is normal size. The dimensions of the ascending aorta are normal. The IVC is of normal diameter and collapses greater than 50% with a sniff. This suggests a low right atrial pressure of 3 mm Hg. Pericardium/ Pleura There is no pericardial effusion. There is no pleural effusion. MMode/2D Measurements & Calculations LVIDd: 5.0 cm LVOT diam: 2.4 cm LVIDs: 3.1 cm Ao root diam: 3.1 cm FS: 38.2 % asc Aorta Diam: 3.3 cm EPSS: 0.39 cm IVSd: 0.73 cm LVPWd: 0.71 cm LV nolen. diameter/BSA (cm/m^2): 2.1 LV sys. diameter/BSA (cm/m^2): 1.3 LA A2 area: 16.2 cm2 RA long axis: 4.5 cm LA A4 area: 16.1 cm2 RA area: 12.6 cm2 LA length (vol): 4.9 cm RA vol: 29.6 ml LA vol: 45.6 ml RA : 12.6 ml/m2 LA vol index: 19.4 ml/m2 IVC diam: 1.3 cm RVD1 (basal): 4.1 cm RVD2 (mid): 3.9 cm TAPSE: 2.1 cm Doppler Measurements & Calculations Ao V2 max: 167.3 cm/sec LVOT Max Miguel: 118.9 cm/sec Ao V2 mean: 121.5 cm/sec LV V1 max P.7 mmHg Ao max P.2 mmHg LV V1 VTI: 22.6 cm Ao mean P.4 mmHg KAMERON(I,D): 3.6 cm2 Ao V2 VTI: 27.7 cm KAMERON(V,D): 3.2 cm2 sev ratio: 0.81 KAMERON indexed to BSA (cm^2/m^2): 1.5 MV E max miguel: 85.7 cm/sec PA V2 max: 112.5 cm/sec MV A max miguel: 68.4 cm/sec PA V2 mean: 86.1 cm/sec MV E/A: 1.3 PA mean P.1 mmHg Med Peak E' Miguel: 9.4 cm/sec PA pr(Accel): 25.9 mmHg E/E' med: 9.2 Lat Peak E' Miguel: 13.0 cm/sec E/E' lat: 6.6 E/e' average: 7.9 MV dec time: 0.14 sec SVLVOT): 100.6 ml Reading Physician:04:31 PM
[2023-05-17] MEDS: PANTOPRAZOLE 40 MG VIAL IV ×2 (15:05→20:17)
[2023-05-17] MEDS: HYDROMORPHONE 0.5 MG INJ 2 MG IV (16:34)
[2023-05-17] MEDS: LORazepam 2 MG/ML INJ 1 MG IV ×2 (16:35→20:17)
[2023-05-17] MEDS: VANCOMYCIN 1,250 MG/250 ML PIGGYBACK 250 MG IV (17:12)
[2023-05-17] MEDS: HYDROMORPHONE 2 MG INJ IV ×3 (18:28→22:41)
[2023-05-17] MEDS: NICOTINE 21 MG PATCH TOP (18:28)
[2023-05-18] VITALS (12 sets, daily range): BP systolic 101–129; BP diastolic 58–77; PULSE 80–91; RESP 14–18; TEMP 36.1–38.3; O2SAT 93–100; BMI 29.3
[2023-05-18] MEDS: SODIUM CHLORIDE 0.9% 1,000 ML 100 ML IV (00:09)
[2023-05-18] MEDS: LORazepam 2 MG/ML INJ 1 MG IV ×2 (00:42→04:34)
[2023-05-18] MEDS: HYDROMORPHONE 2 MG INJ IV ×4 (00:43→06:25)
[2023-05-18] MEDS: VANCOMYCIN 1,250 MG/250 ML PIGGYBACK 250 MG IV ×3 (00:43→18:28)
[2023-05-18 05:08] LABS: Add Manual Diff / Slide Review NO; Basophils Absolute Auto 100 /uL (0-100); Basophils Percent Auto 0.7 % (0-2); Eosinophils Absolute Auto 0 /uL (0-450); Eosinophils Percent Auto 0.2 % (2-4); Hematocrit 28.8 % (41-53); Lymphocytes Absolute Auto 1600 /uL (1100-4500); Lymphocytes Percent Auto 8.7 % (25-40); Mean Corpuscular HGB Conc 34.7 % (30-36); Mean Corpuscular Hemoglobin 28.2 PG (26-34); Mean Corpuscular Volume 81.4 fL (80-100); Monocytes Absolute Auto 1600 /uL (0-900); Monocytes Percent Auto 8.4 % (3-14); Neutrophils Absolute Auto 15400 /uL (1500-7000); Platelet Count 414 X10^3/uL (150-400); Red Blood Cell Count 3.54 X10^6/uL (4.5-5.9); Red Cell Distribution Width 13.5 % (11.6-14.8); White Blood Cell Count 18.8 X10^3/uL (4.5-11.0)
[2023-05-18 05:13] LABS: Alanine Aminotransferase 23 IU/L (<50); Albumin 2.6 g/dL (3.5-5.0); Albumin Globulin Ratio 0.7 (1.0-2.8); Alkaline Phosphatase 94 U/L (38-126); Aspartate Aminotransferase 22 IU/L (17-59); BUN Creatinine Ratio 5.5 (6-22); Bilirubin Total 0.7 mg/dL (0.2-1.3); Blood Urea Nitrogen 3 mg/dL (9-20); Calcium 7.7 mg/dL (8.4-10.2); Carbon Dioxide 24 mmol/L (22-32); Chloride 105 mmol/L (98-107); Estimated Glomerular Filt Rate > 60 mL/min (>60); Globulin 3.5 g/dL (1.7-4.1); Glucose 105 mg/dL (70-100); HEMOLYSIS < 15 (0-50); Sodium 137 mmol/L (137-145); Total Protein 6.1 g/dL (6.3-8.2)
[2023-05-18 05:14] LABS: Hemoglobin A1C% w Est Avg Glu 5.3 % (4.0-6.0)
[2023-05-18 05:25] LABS: C-Reactive Protein Quant 16.8 mg/dL (<1.0)
[2023-05-18 05:35] LABS: Erythrocyte Sedimentation Rate 64 MM/HR (0-15)
[2023-05-18] MEDS: OXYCODONE IR 10 MG TABLET PO (05:41)
--- NOTE | 2023-05-18 06:41 | PC.NURSE ---
Pt has been receiving pain medication IV and orally and still c/o pain 12/06 and at times agitated and stating he thinks he is going through withdrawls.
[2023-05-18] MEDS: POTASSIUM CHLORIDE IN WATER 10 MEQ/100 ML PIGGYBACK 100 MEQ IV ×5 (06:48→12:53)
--- NOTE | 2023-05-18 07:57 | PM.CN ---
History of Present Illness Consult details Date Patient Seen: 05/18/23 Time Patient Seen: 07:57 Chief complaint: GI blees/ skin infection Narrative: Michel is a 38 year old man with a history of substance abuse who presented yesterday to the ER complaining of about 1 week of right lower leg pain, swelling and redness. He was admitted to the hospitalist service and a CT was performed demonstrating a fluid collection anterior to the inferior tibia. He denies injecting in that location and he denies any recent trauma to the skin there. He is on antibiotics now. Meds Home Medications and Allergies Home Medications Medication Instructions Recorded Confirmed Type No Known Home Medications 01/27/23 01/27/23 History bumetanide 0.5 mg tablet 0.5 mg PO DAILY edema #30 tabs 01/27/23 01/27/23 Rx potassium chloride 10 mEq 10 meq PO DAILY #30 tabs 01/27/23 01/27/23 Rx tablet,extended release(part/cryst) Allergies Allergy/AdvReac Type Severity Reaction Status Date / Time No Known Drug Allergies Allergy Unverified 01/27/23 10:07 Exam Vital Signs (past 8 hours): - 05/18/23 00:00 05/18/23 00:00 05/18/23 04:00 Temperature 97.0 F L 98.7 F Pulse Rate 91 H 91 H Respiratory Rate 17 17 Blood Pressure 106/61 123/75 Pulse Oximetry 94 94 100 Oxygen Delivery Method Room Air Oxygen Flow Rate 0 0 Oxygen Delivery Method Room Air Oxygen Flow Rate 0 Narrative Exam Narrative: There is erythema and fluctuance of the skin and subcutaneous tissue anterior to the right inferior tibia and overlying the ankle There are some scab like eschars of the anterior leg skin somewhat more superior medially Left leg demonstrates some eschar but no comparable edema or erythema Objective Labs 05/18/23 04:40 05/18/23 04:40 Labs: Laboratory Results - last 24 hr 05/17/23 05/18/23 07:38 04:40 WBC 24.9 H 18.8 H RBC 4.20 L 3.54 L Hgb 11.3 L 10.0 L Hct 33.5 L 28.8 L MCV 79.9 L 81.4 MCH 26.8 28.2 MCHC 33.6 34.7 RDW 13.3 13.5 Plt Count 464 H 414 H Neut % (Auto) Not Reportable 82.0 H Lymph % (Auto) Not Reportable 8.7 L [place] % (Auto) Not Reportable 8.4 Eos % (Auto) Not Reportable 0.2 L Baso % (Auto) Not Reportable 0.7 Neut # (Auto) 17895 H Lymph # (Auto) Not Reportable 1600 [place] # (Auto) Not Reportable 1600 H Eos # (Auto) 0 Baso # (Auto) Not Reportable 100 Total Counted 100 Seg Neutrophils % 86.0 H Band Neutrophils % 1.0 L Lymphocytes % (Manual) 7.0 L Monocytes % (Manual) 6.0 Neutrophils # (Manual) 08749 H RBC Morphology Normal morphology ESR 64 H PT 16.4 H INR 1.4 H APTT 47 H Sodium 131 L 137 Potassium 2.7 L* 3.0 L Chloride 94 L 105 Carbon Dioxide 23 24 BUN 8 L 3 L Creatinine 0.60 L 0.55 L Estimated GFR > 60 > 60 BUN/Creatinine Ratio 13.3 5.5 L Glucose 114 H 105 H Hemoglobin A1c 5.3 Lactate 1.4 Calcium 8.3 L 7.7 L Magnesium 2.0 Total Bilirubin 1.4 H 0.7 AST 29 22 ALT 29 23 Alkaline Phosphatase 119 94 Total Creatine Kinase 72 Troponin I < 0.012 C-Reactive Protein 16.8 H NT-Pro-B Natriuret Pep 717 H Total Protein 7.3 6.1 L Albumin 3.3 L 2.6 L Globulin 4.0 3.5 Albumin/Globulin Ratio 0.8 L 0.7 L Procalcitonin 0.59 H Blood Type O Positive Antibody Screen Negative [facility] Medical History Fentanyl use disorder, mild Tobacco dependence History of heroin use Morbid obesity due to excess calories Social History household members: significant other Tobacco & Substance Use Smoking Status: Current every day smoker alcohol intake: never Assessment & Plan Assessment and plan (1) Abscess of right leg: Status: Acute Plan There appears to be a subcutaneous abscess. We will proceed to the OR for incision and drainage today. Continue IV antibiotics and NPO.
[2023-05-18] MEDS: fentaNYL 100 MCG/2 ML INJ 50 MCG IV (09:25)
[2023-05-18] MEDS: cefTRIAXone 1,000 MG in SODIUM CHLORIDE 0.9% 100 ML 200 MG IV (09:33)
[2023-05-18] MEDS: PANTOPRAZOLE 40 MG VIAL IV (09:33)
[2023-05-18] MEDS: NICOTINE 21 MG PATCH TOP (09:33)
[2023-05-18] MEDS: LORazepam 2 MG/ML INJ IV ×3 (09:51→17:50)
[2023-05-18] MEDS: fentaNYL 100 MCG/2 ML INJ IV ×3 (09:51→17:50)
[2023-05-18] MEDS: NICOTINE 21 MG PATCH 42 MG TOP (09:51)
[2023-05-18] MEDS: LACTATED RINGERS 1,000 ML 42 ML IV (13:13)
--- NOTE | 2023-05-18 14:03 | CM.DANOTE ---
Patient is a 38 yo male who was admitted on 05/17/23 for Cellulitis and r/o GI Bleed. Pt has [employer] and [employer] for insurance and his PCP is Dr. Berkley Gómez. EMR was reviewed. Per MD, pt with a hx of opiate abuse (Fentanyl) and hx of heroin use and admitted for Cellulitis leg and on IV-Abx and Surgeon Consulted. Per Surgeon, recommendation of I&D today and ongoing IV-Abx. SW met bedside with pt and explained role and pt clearly in discomfort and states he is in significant pain and agitation due to lack of sleep and likely some withdrawal from baseline opiate abuse. Pt confirms that due to his opiate use he has a high threshold for pain medications and dilaudid not giving him relief. Pt unable to focus due to pain and agitation for further bedside discussion regarding discharge planning and home situation. SW updated RN and MD and then pt stating he would leave AMA but then MD able to discuss significant need for I&D and IV-Abx and able to get a better pain management regimen and pt able to sleep some and willing to stay for surgical intervention. Pt taken off floor to OR for I&D. Plan: SW to follow closely for pt to return to the floor for better discharge planning discussion to determine his discharge needs and interest in community resources/[facility] services. SANDRA Aguilar Discharge Planning/Care Management CM Discharge Assessment Start: 05/18/23 14:00 Freq: Status: Active Protocol: Document 05/18/23 14:01 (Rec: 05/18/23 14:03 [id number]) Discharge Planning Assessment Assigned Picture Booker SANDRA Hernandez DPOA/Assigned Designee Name informally father Vaibhav Contact Information [phone] Advance Directives? No Advance Directives on File No History Provided By Patient,Family Member,Medical Record Has Patient been admitted in last 30 No days? Prior Living Arrangements House Household Members significant other Type of transporation used prior to Relies on Others admit Independent with ADL's Yes Is patient alert and oriented? Yes Caregiver for Another No Comment Pt likely will decline any rsources although could benefit from [facility] resources/ supports Barriers to Discharge Yes Comment Pt initially wanting to leave AMA but currently willing to stay for I&D by Surgeon Discharge Plan Home Transportation Arrangement Father bedside Whiteboard Updated in Patient Room with Yes name and ext. # of Picture Booker Review Status In Process Please Provide Date Initial DC 05/18/23 Assessment Was Performed Next Review Type Continued Stay Review
--- NOTE | 2023-05-18 14:11 | SUR.HOLD ---
Patient found out of his bed in pre-op. Re-oriented patient to situation. Patient AAO x 3 after answering questions regarding his situation. Placed patient back in bed. Patient asking about his dad and his location.
[2023-05-18] MEDS: ALBUTEROL/IPRATROPIUM 3 ML AMPUL INH (14:22)
--- NOTE | 2023-05-18 15:06 | P.PN_ITS ---
Subjective Subjective Interval history: 38 M with opiate / fentanyl use admitted with R leg cellulitis and abscess. He became agitated this morning, threatening to leave AMA. Ordered for fentanyl prn and ativan with some improvement. He is going to the OR today for I&D. Exam Vital Signs (past 8 hours): - 05/18/23 08:00 05/18/23 08:00 05/18/23 12:00 Temperature Pulse Rate 90 Respiratory Rate 18 Blood Pressure 114/67 Pulse Oximetry 98 94 94 Oxygen Delivery Method Room Air Room Air Oxygen Flow Rate 0 0 0 05/18/23 13:14 Temperature 100.9 F H Pulse Rate 85 Respiratory Rate 16 Blood Pressure 101/59 L Pulse Oximetry 94 Oxygen Delivery Method Room Air Oxygen Flow Rate Oxygen Delivery Method Room Air Oxygen Flow Rate 0 Narrative Exam Narrative: Gen: anxious male, agitated CV: tachycardic, regular rhyhtm no m/r/g Pulm: CTA b/l Abd: S NT ND Ext: b/l LE edema, R leg erythema and tenderness, induration just above R ankle. Objective Labs 05/18/23 04:40 05/18/23 04:40 Labs: Laboratory Results - last 24 hr 05/18/23 04:40 WBC 18.8 H RBC 3.54 L Hgb 10.0 L Hct 28.8 L MCV 81.4 MCH 28.2 MCHC 34.7 RDW 13.5 Plt Count 414 H Neut % (Auto) 82.0 H Lymph % (Auto) 8.7 L [place] % (Auto) 8.4 Eos % (Auto) 0.2 L Baso % (Auto) 0.7 Neut # (Auto) 22403 H Lymph # (Auto) 1600 [place] # (Auto) 1600 H Eos # (Auto) 0 Baso # (Auto) 100 ESR 64 H Sodium 137 Potassium 3.0 L Chloride 105 Carbon Dioxide 24 BUN 3 L Creatinine 0.55 L Estimated GFR > 60 BUN/Creatinine Ratio 5.5 L Glucose 105 H Hemoglobin A1c 5.3 Calcium 7.7 L Magnesium 2.0 Total Bilirubin 0.7 AST 22 ALT 23 Alkaline Phosphatase 94 C-Reactive Protein 16.8 H Total Protein 6.1 L Albumin 2.6 L Globulin 3.5 Albumin/Globulin Ratio 0.7 L [facility] Medical History Fentanyl use disorder, mild Tobacco dependence History of heroin use Morbid obesity due to excess calories Social History household members: significant other Smoking Status: Current every day smoker alcohol intake: never Assessment & Plan Assessment & Plan narrative: 1. RLE cellulitis and abscess, r/o sepsis - continue ceftriaxone and vancomycin per pharmacy. - CT showed subcutaneous abscess. Surgery was consulted and going to the OR today - may need increased opiate medications for pain with history of fentanyl use. Required 100 mcg of fentanyl IV push today to control pain. - SOFA score currently 1 for elevated bilirubin level, continue to monitor 2. Bilateral LE edema - checked echo to rule out heart failure, though no dyspnea reported. Echocardiogram was unremarkabled - consider diuresis, but will hold additional fluids for now with high fever and concern for possible sepsis 3. Chronic fentanyl use with acute opiate withdrawal - will likely need higher doses of opiates for pain control in setting of cellulitis and infection. - continued oxycodone 10 mg q3 hrn, prn dilaudid for breakthrough initially without improvement. Developed agitation, tachycardia and other withdrawal symptoms on 05/18 AM. Ativan does little for agitation / restlessness. - after OR trial xanax, continue fentanyl 100 mcg IV pushes for now will help with withdrawal but will need to taper down or transition to alternative therapies after the OR. 4. Hypokalemia and hyponatremia, acute, present on admission - presume secondary to fluid losses. Will stop additional IV fluids at this time pending above echo for b/l LE edema 5. Possible GI bleeding - patient with reported one episode of melena. Will continue to monitor, start IV PPI BID, hold NSAIDS which patient has been taking. - if h/h continues to fall will consider surgery consultation for EGD. Hg 10 today from 11.3, no melena reported overnight. Code: Full I have utilized all available immediate resources to obtain, update, or review the patient's current medications. Dispo: Admitted inpatient, his stay is expected to exceed two midnights. Discussed with ER provider to contribute to above history, and coordination of assessment and plan documented above. Quality VTE Deep Vein Thrombosis/Pulmonary Embolism Present on Admission: No
--- NOTE | 2023-05-18 16:34 | SUR.OPER ---
Supine on padded OR bed, head on pillow, arms secured on padded arm boards at <90 degrees abduction, legs uncrossed, safety belt at thigh.
[2023-05-18] MEDS: BUPIVACAINE 0.5% (PF) 30 ML, EPINEPHrine 0.15 MG INJ (16:41)
--- NOTE | 2023-05-18 16:46 | P.OP_ITS ---
Operative Date/Time/Diagnoses Date of procedure: 05/18/23 Time of procedure: 16:46 Pre-op diagnosis: Right leg abscess Post-op diagnosis: same Procedure & Clinicians Procedure: Incision and drainage of right leg abscess Same procedure as scheduled: Yes Surgeon: Han Fritz Anesthesia Type: MAC +/- Operative Notes Procedure in detail: The patient is a 38-year-old man who presented with a right leg subcutaneous abscess. He was consented for an incision and drainage with sedation. He was on scheduled antibiotics. Patient was brought to the operating room and placed on the table in the supine position. The right leg was prepped and draped in the usual fashion. A time- out was performed. After injecting about 5 mL of local 3 cm incision was made over the area of greatest fluctuance in the right anterior inferior leg. Roughly 30 mL of pus and clot were evacuated. Cultures were taken. The wound was packed with gauze for hemostasis and keep wound open. The patient was brought to recovery. EBL: 10 mL Post-operative Condition: stable Disposition: PACU
[2023-05-18] MEDS: POTASSIUM CHLORIDE 20 MEQ TAB 40 MEQ PO (17:50)
[2023-05-18 18:22] LABS: Vancomycin Trough 11.1 ug/mL (10-20)
--- NOTE | 2023-05-18 19:57 | PC.NURSE ---
1955 Elly hathaway, Pt. requested to take out midline. Midline discontinued & catheter intact. Patient signed AMA form. Family @ bedside to accompanied patient down stairs to go home.
== END 2023-05-18 19:54 | disposition left against medical advice (07) | DRG 383 ==
LOC: ED 08:50 → AC 08:53
PROVIDERS: Surgery; Admitting Provider Internal Medicine; Emergency Provider Emergency Medicine; PCP Family Medicine; Visit Provider Internal Medicine
PROC: 0J9N0ZX Drainage of Right Lower Leg Subcutaneous Tissue and Fascia, Open Approach, Diagnostic (ICD-10-PCS; principal; 2023-05-18 15:45)
DX: L03.115 Cellulitis of right lower limb (principal); K92.2 Gastrointestinal hemorrhage, unspecified; E87.1 Hypo-osmolality and hyponatremia; F17.200 Nicotine dependence, unspecified, uncomplicated; E87.6 Hypokalemia; L02.415 Cutaneous abscess of right lower limb; R60.0 Localized edema; F11.93 Opioid use, unspecified with withdrawal; K92.1 Melena; Z53.29 Procedure and treatment not carried out because of patient's decision for other reasons
CPT/HCPCS: 10060; 36415; 71045; 73701; 80053; 80202; 82550; 83036; 83605; 83735; 83880; 84145; 84484; 85007; 85025; 85610; 85651; 85730; 86140; 86850; 86900; 86901; 87040; 87070; 87075; 87077; 87147; 87205; 93005; 93306; 93970; 96365; 96367; 96375; 99232; 99285; G0378; C9113; J0171; J0696; J1170; J1885; J2060; J2405; J2704; J3010; Q9967

== ENCOUNTER → 2023-05-26 13:12 | Outpatient (CLI) | payer OTHER, MEDICAID, SELFPAY ==
[2023-05-19 15:28] VITALS: BMI 29.3
== END ==
LOC: WC 13:22
PROVIDERS: PCP Family Medicine; Referring Provider Physician Assistant; Visit Provider Surgery
DX: T81.89XA Other complications of procedures, not elsewhere classified, initial encounter (principal); S91.001A Unspecified open wound, right ankle, initial encounter; L98.8 Other specified disorders of the skin and subcutaneous tissue; R60.0 Localized edema; L53.9 Erythematous condition, unspecified; F11.90 Opioid use, unspecified, uncomplicated; F17.210 Nicotine dependence, cigarettes, uncomplicated
CPT/HCPCS: 11042; 99203; 99213

== ENCOUNTER → 2023-06-01 14:34 | Outpatient (CLI) | payer OTHER, MEDICAID, SELFPAY ==
[2023-05-19 15:28] VITALS: BMI 29.3
== END ==
LOC: WC 14:35
PROVIDERS: PCP Family Medicine; Referring Provider Physician Assistant; Visit Provider Physician Assistant
DX: T81.89XA Other complications of procedures, not elsewhere classified, initial encounter (principal); S81.801A Unspecified open wound, right lower leg, initial encounter; R60.0 Localized edema; L53.9 Erythematous condition, unspecified
CPT/HCPCS: 99213

== ENCOUNTER → 2023-06-04 11:22 | Outpatient (CLI) | payer OTHER, MEDICAID, SELFPAY ==
[2023-05-19 15:28] VITALS: BMI 29.3
== END ==
LOC: WC 11:23
PROVIDERS: PCP Family Medicine; Referring Provider Physician Assistant; Visit Provider Physician Assistant
DX: T81.89XA Other complications of procedures, not elsewhere classified, initial encounter (principal); S81.801A Unspecified open wound, right lower leg, initial encounter; R60.0 Localized edema; L53.9 Erythematous condition, unspecified
CPT/HCPCS: 99213

== ENCOUNTER → 2023-06-07 12:59 | Outpatient (CLI) | payer OTHER, MEDICAID, SELFPAY ==
[2023-05-19 15:28] VITALS: BMI 29.3
== END ==
LOC: WC 12:59
PROVIDERS: PCP Family Medicine; Referring Provider Physician Assistant; Visit Provider Surgery
DX: T81.89XA Other complications of procedures, not elsewhere classified, initial encounter (principal); S81.801A Unspecified open wound, right lower leg, initial encounter; L98.8 Other specified disorders of the skin and subcutaneous tissue; R60.0 Localized edema
CPT/HCPCS: 99213

== ENCOUNTER → 2023-06-09 13:38 | Outpatient (CLI) | payer OTHER, MEDICAID, SELFPAY ==
[2023-05-19 15:28] VITALS: BMI 29.3
== END ==
LOC: WC 13:39
PROVIDERS: PCP Family Medicine; Referring Provider Physician Assistant; Visit Provider Surgery
DX: S91.001A Unspecified open wound, right ankle, initial encounter (principal); T81.89XA Other complications of procedures, not elsewhere classified, initial encounter; R60.0 Localized edema; F17.210 Nicotine dependence, cigarettes, uncomplicated; F11.99 Opioid use, unspecified with unspecified opioid-induced disorder; L98.8 Other specified disorders of the skin and subcutaneous tissue
CPT/HCPCS: 11042

== ENCOUNTER → 2023-06-11 15:04 | Outpatient (CLI) | payer OTHER, MEDICAID, SELFPAY ==
[2023-05-19 15:28] VITALS: BMI 29.3
== END ==
LOC: WC 15:04
PROVIDERS: PCP Family Medicine; Referring Provider Physician Assistant; Visit Provider Nurse Practitioner Family
DX: T81.89XA Other complications of procedures, not elsewhere classified, initial encounter (principal); S81.801A Unspecified open wound, right lower leg, initial encounter; L98.8 Other specified disorders of the skin and subcutaneous tissue; R60.0 Localized edema
CPT/HCPCS: 29581

== ENCOUNTER → 2023-06-14 15:04 | Outpatient (CLI) | payer OTHER, MEDICAID, SELFPAY ==
[2023-05-19 15:28] VITALS: BMI 29.3
== END ==
PROVIDERS: PCP Family Medicine; Referring Provider Physician Assistant; Visit Provider Surgery
DX: T81.89XA Other complications of procedures, not elsewhere classified, initial encounter (principal); S81.801A Unspecified open wound, right lower leg, initial encounter; R60.0 Localized edema
CPT/HCPCS: 29581

== ENCOUNTER → 2023-06-17 12:10 | Outpatient (CLI) | payer OTHER, MEDICAID, SELFPAY ==
[2023-05-19 15:28] VITALS: BMI 29.3
== END ==
PROVIDERS: Family Provider Family Medicine; PCP Family Medicine; Referring Provider Physician Assistant; Visit Provider Surgery
DX: T81.89XA Other complications of procedures, not elsewhere classified, initial encounter (principal); S91.001A Unspecified open wound, right ankle, initial encounter; R60.0 Localized edema; I89.0 Lymphedema, not elsewhere classified; F17.210 Nicotine dependence, cigarettes, uncomplicated; F11.10 Opioid abuse, uncomplicated
CPT/HCPCS: 11042

== ENCOUNTER → 2023-06-25 15:33 | Outpatient (CLI) | payer OTHER, MEDICAID, SELFPAY ==
[2023-05-19 15:28] VITALS: BMI 29.3
== END ==
LOC: WC 15:34
PROVIDERS: Family Provider Family Medicine; PCP Family Medicine; Referring Provider Family Medicine; Visit Provider Physician Assistant
DX: T81.89XA Other complications of procedures, not elsewhere classified, initial encounter (principal); S81.801A Unspecified open wound, right lower leg, initial encounter; R60.0 Localized edema; L98.8 Other specified disorders of the skin and subcutaneous tissue; I89.0 Lymphedema, not elsewhere classified; F17.210 Nicotine dependence, cigarettes, uncomplicated
CPT/HCPCS: 11042; 99212; 99213

== ENCOUNTER → 2023-07-01 15:50 | Outpatient (CLI) | payer OTHER, MEDICAID, SELFPAY ==
[2023-05-19 15:28] VITALS: BMI 29.3
== END ==
LOC: WC 15:51
PROVIDERS: Family Provider Family Medicine; PCP Family Medicine; Referring Provider Physician Assistant; Visit Provider Surgery
DX: S91.001D Unspecified open wound, right ankle, subsequent encounter (principal); R60.0 Localized edema; I89.0 Lymphedema, not elsewhere classified
CPT/HCPCS: 99213

== ENCOUNTER 2023-08-26 16:00 | Outpatient (RCR) | payer OTHER, MEDICAID, SELFPAY ==
[2023-05-19 15:28] VITALS: BMI 29.3
--- NOTE | 2023-07-27 16:37 | PT.OIE ---
Current Diagnoses Lymphedema, not elsewhere classified (07/27/23) Past Medical History (Last Reviewed 05/17/23 @ 14:57 by Sanjiv Fofana DO) Fentanyl use disorder, mild History of heroin use Morbid obesity due to excess calories Tobacco dependence Visit Care Team Role Provider Type Berkley Gómez DO Family Provider Physician Primary Care Provider Specialty: Family Practice Address: [address] [place] [address], [address], [address] Email: [email or web address] Jacinto Marie MD Attending Provider Physician Referring Provider Specialty: Wound Care Address: [address] [place] [address], [id number] Email: [email or web address] Physical Therapy Initial Evaluation PT-OP-A Visit Information Start: 07/25/23 08:40 Freq: Status: Active Protocol: Document 07/27/23 14:37 [facility] (Rec: 07/27/23 15:31 [facility] [id number]) Out-Patient Physical Therapy Visit Information Visit Information Visit Type Initial Evaluation Visit Start Time 14:35 Visit Stop Time 16:00 Visit Number 1 Evaluation Information Evaluation Date 07/27/23 Precautions Precautions Fentanyl use PT-OP-B Current Condition Start: 07/25/23 08:40 Freq: Status: Active Protocol: Document 07/27/23 14:37 [facility] (Rec: 07/27/23 15:31 [facility] [id number]) Current Condition History of Current Condition Onset Date 5 months Current Complaints lymphedema History of Current Condition developed cellulits bimal LE's for no known reason , then wound abscess right LE. Hospitalized 5 days, had surgery, antibiotics, then treatment by wound care. Wound now healed. States he has compression stockings but doesn't feel they do anything or fit well. No treatment for lymphedema other than initially put on water pills which he reports were not helpful. Prior Treatments and Tests wound care, healed wound Treatment Goals Patient/Caregiver Goals decrease lymphedema, be able to self manage Current Functional Impairments (Reported) Functional Limitations- Mobility/Gait limited to primarily household ambulation Functional Limitations- Recreation/ unable Hobbies Personal Factors Other Personal Factors That May Effect Fentanyl use, overweight, poor Therapy/Recovery diet PT-OP-C Subjective Start: 07/25/23 08:40 Freq: Status: Active Protocol: Document 07/27/23 14:37 [facility] (Rec: 07/27/23 16:36 [facility] [id number]) Patient Questionnaires Lymphedema Life Impact Score Lymphedema Score 58 OP-PT Pain Assessment Pain Assessment Grid Paper Pain Assessment Grid Completed Yes Location Bilateral Lower Leg Intensity 3 PT-OP-F Manual Assessment Start: 07/25/23 08:40 Freq: Status: Active Protocol: Document 07/27/23 14:37 [facility] (Rec: 07/27/23 16:36 [facility] [id number]) Manual Assessments Soft Tissue Assessment Soft Tissue Mobility Assessment hyperkeratosis, reddish discoloration, scab anterior right aranda from healed abscess PT-OP-G Mobility & Gait Start: 07/25/23 08:40 Freq: Status: Active Protocol: Document 07/27/23 14:37 [facility] (Rec: 07/27/23 16:36 [facility] [id number]) OP Gait Assessment Gait Gait Assistance Required: Independent Assistive Devices Assistive Device None Gait Deviations General Gait Pattern Antalgic,Decreased Stride Length,Decreased Feet Clearance Comments Gait Comments limited by swelling and heaviness of legs PT-OP-J Posture/Palpation/Skin Start: 07/25/23 08:40 Freq: Status: Active Protocol: Document 07/27/23 14:37 [facility] (Rec: 07/27/23 16:36 [facility] [id number]) Palpation Assessment Location bimal LE's Palpation Findings Edema,Tenderness Palpation Details no increase in warmth PT-OP-K Range of Motion Start: 07/25/23 08:40 Freq: Status: Active Protocol: Document 07/27/23 14:37 [facility] (Rec: 07/27/23 16:36 [facility] [id number]) Knee Goniometric Range of Motion Knee bimal Knee ROM WFL Yes Ankle and Foot Goniometric Range of Motion Ankle and Foot bimal Ankle/Foot ROM WFL No Dorsiflexion with Knee Flexed 5 Dorsiflexion with Knee Extended 0 Ankle and Foot ROM Limitations ROM Limitations Soft Tissue Tightness,Swelling PT-OP-N Lymphedema Start: 07/25/23 08:40 Freq: Status: Active Protocol: Document 07/27/23 14:37 [facility] (Rec: 07/27/23 15:31 [facility] [id number]) Lymphedema Measurements Lower Extremity Circumference Measurements Left Affected MT Heads 27.7 cm Mid-foot 28.5 cm Medial Malleolus 33.2 cm 10 cm From Medial Malleolus 34.3 cm 20 cm From Medial Malleolus 42.9 cm 30 cm From Medial Malleolus 44 cm 40 cm From Medial Malleolus 45.4 cm 50 cm From Medial Malleolus 50 cm 60 cm From Medial Malleolus 57.2 cm Knee Joint 48.7 cm Right Affected MT Heads 26.6 cm Mid-foot 28.7 cm Medial Malleolus 36.8 cm 10 cm From Medial Malleolus 36.4 cm 20 cm From Medial Malleolus 44.6 cm 30 cm From Medial Malleolus 48 cm 40 cm From Medial Malleolus 45.3 cm 50 cm From Medial Malleolus 49.6 cm 60 cm From Medial Malleolus 57.5 cm Knee Joint 48.5 cm Comments Lymphedema Comments reddish discoloration bilateral LE's from mid calf distal to toes, no signs or symptoms of infection. 4 cm long scap anterior right aranda from prior wound. Skin dry, good capillary refill. PT-OP-Q Treatments Start: 07/25/23 08:40 Freq: Status: Active Protocol: Document 07/27/23 14:37 [facility] (Rec: 07/27/23 16:36 [facility] [id number]) Cardio Equipment Recumbent Stepper (Sci-Fit) Duration (Minutes) 5 Resistance 1 Seat Position 10 Lymphedema Treatment Manual Lymphatic Drainage Location bimal LE's Duration 10 Comments instruction for self massage and given written and online resources Lymphedema Wrapping Body Location bimal LE's base of toes to knees Materials Tricofix size G, Artiflex (2 rolls), Comprilan (6, 8, 10), Komprex kidneys Sequential Lymphedema Exercises Comments Sci-Fit x 5 min Compression Garment Assessment Compression Garment Assessment Details patient did not wear compression garments or bring to PT today. Sounds like he will need new Patient Education Lymphedema Pathology instructed Lymphedema Prevention instrsucted Lymphedema Precautions instructed Compression Garments discussed options, given online resources Self Manual Lymphatic Drainage instructed and given written and online resources Sequential Lymphedema Exercises given handout, to review next session, Trial SciFit today Other Other Potential benefits of sequential pneumatic pump for home management PT-OP-T Assessment and Plan Start: 07/25/23 08:40 Freq: Status: Active Protocol: Document 07/27/23 14:37 [facility] (Rec: 07/27/23 16:36 [facility] [id number]) Physical Therapy Assessment Rehab Potential Rehabilitation Potential Good Evaluation Complexity Number of Personal Factors/Comorbidities 1-2 Number of Body Systems Impaired 3 Clinical Presentation at Evaluation Evolving Impairments Impairments Edema,Integument,ROM Goals Three Impairment activity intolerance Impairment not currently performing any exercise program Short Term Goal (STG) Patient to improve activity tolerance to being able to walk for up to 15 minutes at a time STG Duration 08/26/23 Fdc Goal (LTG) Patient to improve activity tolerance to being able to walk for up to 30 minutes at a time to assist with medical terminologist fitness and edema management LTG Duration 10/26/23 Two Impairment Lymphedema Life impact scale 58% Short Term Goal (STG) Decrease Lymphedema Life Impact Scale to no greater than 40% as measure of improved activity tolerance and quality of life. STG Duration 08/26/23 Outside Sales Goal (LTG) Decrease Lymphedema Life Impact Scale to no greater than 25% as measure of improved activity tolerance and quality of life. LTG Duration 10/26/23 One Impairment lymphedema bimal LE's Short Term Goal (STG) Patient will be instructed in all aspects of lymphedema self -care to include skin care, elevation, self-massage, self- bandaging/compression options, and lymphedema exercises. STG Duration 08/26/23 Outside Sales Goal (LTG) Decrease patient?s lymphedema to a stable level (no increase or decrease greater than 1 cm over the course of 1 week), patient to be independent with all aspects of self-care for lymphedema, and will obtain appropriate compression garment for lymphedema management in the home. LTG Duration 10/26/23 Assessment Summary Assessment Patient presents to PT with function-limiting lymphedema bilateral LE's right greater than left, recently healed from cellulitis and abscess right LE. Now referred for lymphedema treatment. He has stage II lymphedema bimal LE's with skin discoloration and thickening. No current signs or symptoms of infection. He reports current compression garments not helpful, is not doing any regular exercise, and doesn't know how to manage his lymphedema. He would benefit from physical therapy for Complete Decongestive Therapy to decrease his lymphedema, help him obtain appropriate compression garments and be able to self- manage his lymphedema. He will require compression garments for his lifetime. Feel he also may benefit from the use of a sequential pneumatic pump to assist with lymphedema care in the home. POC was discussed and patient was in agreement. Physical Therapy Plan Frequency and Duration Frequency of Treatment 20 visits Duration of treatment (weeks) 12 Plan of Care Start Date 07/27/23 Plan of Care End Date 10/26/23 Next Visit Focus/Plan Next Note Type Treatment Note Next Visit Plan Assess response to lymphedema bandaging, continue CDT.
--- NOTE | 2023-07-27 16:37 | PT.OPPOC ---
Physical, Occupational & Speech Therapy At [facility] Current Diagnoses Lymphedema, not elsewhere classified (07/27/23) Soft tissue disorder, unspecified (07/27/23) Visit Care Team Role Provider Type Berkley Gómez DO Family Provider Physician Primary Care Provider Specialty: Family Practice Address: [address] [place] [address], [address], [address] Email: [email or web address] Jacinto Marie MD Attending Provider Physician Referring Provider Specialty: Wound Care Address: [address] [place] [address], [id number] Email: [email or web address] Plan Of Care PT-OP-T Assessment and Plan Start: 07/25/23 08:40 Freq: Status: Active Protocol: Document 07/27/23 14:37 [facility] (Rec: 07/27/23 16:36 [facility] [id number]) Physical Therapy Assessment Rehab Potential Rehabilitation Potential Good Evaluation Complexity Number of Personal Factors/Comorbidities 1-2 Number of Body Systems Impaired 3 Clinical Presentation at Evaluation Evolving Impairments Impairments Edema,Integument,ROM Goals Three Impairment activity intolerance Impairment not currently performing any exercise program Short Term Goal (STG) Patient to improve activity tolerance to being able to walk for up to 15 minutes at a time STG Duration 08/26/23 Fdc Goal (LTG) Patient to improve activity tolerance to being able to walk for up to 30 minutes at a time to assist with custodial fitness and edema management LTG Duration 10/26/23 Two Impairment Lymphedema Life impact scale 58% Short Term Goal (STG) Decrease Lymphedema Life Impact Scale to no greater than 40% as measure of improved activity tolerance and quality of life. STG Duration 08/26/23 Ammonia Box Tender Goal (LTG) Decrease Lymphedema Life Impact Scale to no greater than 25% as measure of improved activity tolerance and quality of life. LTG Duration 10/26/23 One Impairment lymphedema bimal LE's Short Term Goal (STG) Patient will be instructed in all aspects of lymphedema self -care to include skin care, elevation, self-massage, self- bandaging/compression options, and lymphedema exercises. STG Duration 08/26/23 Fdc Goal (LTG) Decrease patient?s lymphedema to a stable level (no increase or decrease greater than 1 cm over the course of 1 week), patient to be independent with all aspects of self-care for lymphedema, and will obtain appropriate compression garment for lymphedema management in the home. LTG Duration 10/26/23 Assessment Summary Assessment Patient presents to PT with function-limiting lymphedema bilateral LE's right greater than left, recently healed from cellulitis and abscess right LE. Now referred for lymphedema treatment. He has stage II lymphedema bimal LE's with skin discoloration and thickening. No current signs or symptoms of infection. He reports current compression garments not helpful, is not doing any regular exercise, and doesn't know how to manage his lymphedema. He would benefit from physical therapy for Complete Decongestive Therapy to decrease his lymphedema, help him obtain appropriate compression garments and be able to self- manage his lymphedema. He will require compression garments for his lifetime. Feel he also may benefit from the use of a sequential pneumatic pump to assist with lymphedema care in the home. POC was discussed and patient was in agreement. Physical Therapy Plan Frequency and Duration Frequency of Treatment 20 visits Duration of treatment (weeks) 12 Plan of Care Start Date 07/27/23 Plan of Care End Date 10/26/23 Next Visit Focus/Plan Next Note Type Treatment Note Next Visit Plan Assess response to lymphedema bandaging, continue CDT. Plan of Care Dates Plan of Care Start Date 07/27/23 Plan of Care End Date 10/26/23 Electronically Signed by: Xena Wagner, PT 07/27/23 0148 If you are in agreement with this Plan of Care, please return a signed and dated copy. I have reviewed this Plan of Care and certify that the skilled therapy services above are required to meet the patient?s needs. Physician Signature Date Printed Name and Credentials Clinical Instructor Signature Printed Name and Credentials
--- NOTE | 2023-07-28 16:14 | PT.OTN ---
Current Diagnoses Lymphedema, not elsewhere classified (07/28/23) Soft tissue disorder, unspecified (07/28/23) Physical Therapy Treatment Note PT-OP-A Visit Information Start: 07/25/23 08:40 Freq: Status: Active Protocol: Document 07/28/23 14:32 [facility] (Rec: 07/28/23 15:24 [facility] [id number]) Out-Patient Physical Therapy Visit Information Visit Information Visit Type Treatment Note Visit Start Time 14:35 Visit Stop Time 16:00 Visit Number 2 Evaluation Information Evaluation Date 07/27/23 Precautions Precautions Fentanyl use PT-OP-B Current Condition Start: 07/25/23 08:40 Freq: Status: Active Protocol: Document 07/28/23 14:32 [facility] (Rec: 07/28/23 15:24 [facility] [id number]) Current Condition History of Current Condition Onset Date 5 months Current Complaints lymphedema History of Current Condition developed cellulits bimal LE's for no known reason , then wound abscess right LE. Hospitalized 5 days, had surgery, antibiotics, then treatment by wound care. Wound now healed. States he has compression stockings but doesn't feel they do anything or fit well. No treatment for lymphedema other than initially put on water pills which he reports were not helpful. Prior Treatments and Tests wound care, healed wound Treatment Goals Patient/Caregiver Goals decrease lymphedema, be able to self manage PT-OP-C Subjective Start: 07/25/23 08:40 Freq: Status: Active Protocol: Document 07/28/23 14:32 [facility] (Rec: 07/28/23 15:24 [facility] [id number]) OP-PT Subjective Patient Comments Patient Comments Was able to wear bandages 24 hrs. No new c/o. PT-OP-F Manual Assessment Start: 07/25/23 08:40 Freq: Status: Active Protocol: Document 07/27/23 14:37 [facility] (Rec: 07/27/23 16:36 [facility] [id number]) Manual Assessments Soft Tissue Assessment Soft Tissue Mobility Assessment hyperkeratosis, reddish discoloration, scab anterior right aranda from healed abscess PT-OP-G Mobility & Gait Start: 07/25/23 08:40 Freq: Status: Active Protocol: Document 07/27/23 14:37 [facility] (Rec: 07/27/23 16:36 [facility] [id number]) OP Gait Assessment Gait Gait Assistance Required: Independent Assistive Devices Assistive Device None Gait Deviations General Gait Pattern Antalgic,Decreased Stride Length,Decreased Feet Clearance Comments Gait Comments limited by swelling and heaviness of legs PT-OP-J Posture/Palpation/Skin Start: 07/25/23 08:40 Freq: Status: Active Protocol: Document 07/27/23 14:37 [facility] (Rec: 07/27/23 16:36 [facility] [id number]) Palpation Assessment Location bimal LE's Palpation Findings Edema,Tenderness Palpation Details no increase in warmth PT-OP-K Range of Motion Start: 07/25/23 08:40 Freq: Status: Active Protocol: Document 07/27/23 14:37 [facility] (Rec: 07/27/23 16:36 [facility] [id number]) Knee Goniometric Range of Motion Knee bimal Knee ROM WFL Yes Ankle and Foot Goniometric Range of Motion Ankle and Foot bimal Ankle/Foot ROM WFL No Dorsiflexion with Knee Flexed 5 Dorsiflexion with Knee Extended 0 Ankle and Foot ROM Limitations ROM Limitations Soft Tissue Tightness,Swelling PT-OP-N Lymphedema Start: 07/25/23 08:40 Freq: Status: Active Protocol: Document 07/28/23 14:32 [facility] (Rec: 07/28/23 15:24 [facility] [id number]) Lymphedema Measurements Lower Extremity Circumference Measurements Left Affected MT Heads 25.8 cm Mid-foot 27.8 cm Medial Malleolus 35.6 cm 10 cm From Medial Malleolus 31.5 cm 20 cm From Medial Malleolus 40.9 cm 30 cm From Medial Malleolus 43.9 cm 40 cm From Medial Malleolus 45.6 cm Right Affected MT Heads 26.5 cm Mid-foot 28.4 cm Medial Malleolus 34.8 cm 10 cm From Medial Malleolus 34 cm 20 cm From Medial Malleolus 43.8 cm 30 cm From Medial Malleolus 45.5 cm 40 cm From Medial Malleolus 45.7 cm PT-OP-Q Treatments Start: 07/25/23 08:40 Freq: Status: Active Protocol: Document 07/28/23 14:32 [facility] (Rec: 07/28/23 16:14 [facility] [id number]) Cardio Equipment Recumbent Stepper (Sci-Fit) Duration (Minutes) 10 Resistance 1 Seat Position 10 Lymphedema Treatment Manual Lymphatic Drainage Location bimal LE's Duration 30 Comments instruction for self massage and given written and online resources Lymphedema Wrapping Body Location bimal LE's base of toes to knees Materials Tricofix size G, Artiflex (2 rolls), Comprilan (6, 8, 10), Komprex kidneys Sequential Lymphedema Exercises Comments Sci-Fit x 10 min Compression Garment Assessment Compression Garment Assessment Details All patient has for compression is Tubigrip. Will definitely need compression stockings, anticipate 30-40 mm Hg compression level. Patient Education Lymphedema Pathology reviewed Lymphedema Prevention reviewed Lymphedema Precautions reviewed Compression Garments discussed further Self Manual Lymphatic Drainage further instruction Other trial Airos sequential pneumatic pump right 20 min during MLD left and 10 min left during MLD right PT-OP-R Modalities Start: 07/25/23 08:40 Freq: Status: Active Protocol: Document 07/28/23 14:32 [facility] (Rec: 07/28/23 16:14 [facility] [id number]) Compression Pump Treatment Treatment Location bimal LE's Pressure Amount (mmHg) (mmHG) 40 Inflation Time (Seconds) 30 Deflation Time (Seconds) 10 Treatment Tolerance Good Treatment Comments 20 min right during MLD left and 10 min left during MLD right. PT-OP-T Assessment and Plan Start: 07/25/23 08:40 Freq: Status: Active Protocol: Document 07/28/23 14:32 [facility] (Rec: 07/28/23 15:24 [facility] [id number]) Physical Therapy Assessment Goals Three Impairment activity intolerance Impairment not currently performing any exercise program Short Term Goal (STG) Patient to improve activity tolerance to being able to walk for up to 15 minutes at a time STG Duration 08/26/23 Custodial Goal (LTG) Patient to improve activity tolerance to being able to walk for up to 30 minutes at a time to assist with long-term fitness and edema management LTG Duration 10/26/23 Two Impairment Lymphedema Life impact scale 58% Short Term Goal (STG) Decrease Lymphedema Life Impact Scale to no greater than 40% as measure of improved activity tolerance and quality of life. STG Duration 08/26/23 Custodial Goal (LTG) Decrease Lymphedema Life Impact Scale to no greater than 25% as measure of improved activity tolerance and quality of life. LTG Duration 10/26/23 One Impairment lymphedema bimal LE's Short Term Goal (STG) Patient will be instructed in all aspects of lymphedema self -care to include skin care, elevation, self-massage, self- bandaging/compression options, and lymphedema exercises. STG Duration 08/26/23 Custodial Goal (LTG) Decrease patient?s lymphedema to a stable level (no increase or decrease greater than 1 cm over the course of 1 week), patient to be independent with all aspects of self-care for lymphedema, and will obtain appropriate compression garment for lymphedema management in the home. LTG Duration 10/26/23 Assessment Summary Assessment Patient circumferential measurements decreased, was able to wear compression bandaging for 24 hours. Will bring girlfriend in for training tomorrow to assist with self bandaging. Continued patient education for self MLD, exercise, bandaging, and skin care, patient demonstrating good understanding and appeared pleased with reduction achieved past 24 hours. Physical Therapy Plan Frequency and Duration Frequency of Treatment 20 visits Duration of treatment (weeks) 12 Plan of Care Start Date 07/27/23 Plan of Care End Date 10/26/23 Next Visit Focus/Plan Next Note Type Treatment Note Next Visit Plan Continue CDT. Train girlfriend in bandaging LE'shayla.
--- NOTE | 2023-07-29 14:45 | PT.OTN ---
Current Diagnoses Lymphedema, not elsewhere classified (07/29/23) Soft tissue disorder, unspecified (07/29/23) Physical Therapy Treatment Note PT-OP-A Visit Information Start: 07/25/23 08:40 Freq: Status: Active Protocol: Document 07/29/23 13:00 SAK (Rec: 07/29/23 13:38 [facility] [id number]) Out-Patient Physical Therapy Visit Information Visit Information Visit Type Treatment Note Visit Note Patient reports able to leave bandages on all night. Visit Start Time 13:00 Visit Number 3 Evaluation Information Evaluation Date 07/27/23 Precautions Precautions Fentanyl use PT-OP-B Current Condition Start: 07/25/23 08:40 Freq: Status: Active Protocol: Document 07/29/23 13:00 SAK (Rec: 07/29/23 13:38 [facility] [id number]) Current Condition History of Current Condition Onset Date 5 months Current Complaints lymphedema History of Current Condition developed cellulits bimal LE's for no known reason , then wound abscess right LE. Hospitalized 5 days, had surgery, antibiotics, then treatment by wound care. Wound now healed. States he has compression stockings but doesn't feel they do anything or fit well. No treatment for lymphedema other than initially put on water pills which he reports were not helpful. Prior Treatments and Tests wound care, healed wound Treatment Goals Patient/Caregiver Goals decrease lymphedema, be able to self manage PT-OP-C Subjective Start: 07/25/23 08:40 Freq: Status: Active Protocol: Document 07/29/23 13:00 SAK (Rec: 07/29/23 14:43 SAK [id number]) OP-PT Subjective Patient Comments Patient Comments Good tolerance for bandaging, improving. Took a short walk today. STill can't fit in her shoes PT-OP-F Manual Assessment Start: 07/25/23 08:40 Freq: Status: Active Protocol: Document 07/27/23 14:37 SAK (Rec: 07/27/23 16:36 SAK [id number]) Manual Assessments Soft Tissue Assessment Soft Tissue Mobility Assessment hyperkeratosis, reddish discoloration, scab anterior right aranda from healed abscess PT-OP-G Mobility & Gait Start: 07/25/23 08:40 Freq: Status: Active Protocol: Document 07/27/23 14:37 SAK (Rec: 07/27/23 16:36 [facility] [id number]) OP Gait Assessment Gait Gait Assistance Required: Independent Assistive Devices Assistive Device None Gait Deviations General Gait Pattern Antalgic,Decreased Stride Length,Decreased Feet Clearance Comments Gait Comments limited by swelling and heaviness of legs PT-OP-J Posture/Palpation/Skin Start: 07/25/23 08:40 Freq: Status: Active Protocol: Document 07/27/23 14:37 [facility] (Rec: 07/27/23 16:36 [facility] [id number]) Palpation Assessment Location bimal LE's Palpation Findings Edema,Tenderness Palpation Details no increase in warmth PT-OP-K Range of Motion Start: 07/25/23 08:40 Freq: Status: Active Protocol: Document 07/27/23 14:37 [facility] (Rec: 07/27/23 16:36 [facility] [id number]) Knee Goniometric Range of Motion Knee bimal Knee ROM WFL Yes Ankle and Foot Goniometric Range of Motion Ankle and Foot bimal Ankle/Foot ROM WFL No Dorsiflexion with Knee Flexed 5 Dorsiflexion with Knee Extended 0 Ankle and Foot ROM Limitations ROM Limitations Soft Tissue Tightness,Swelling PT-OP-N Lymphedema Start: 07/25/23 08:40 Freq: Status: Active Protocol: Document 07/29/23 13:00 [facility] (Rec: 07/29/23 13:38 [facility] [id number]) Lymphedema Measurements Lower Extremity Circumference Measurements Left Affected MT Heads 24.3 cm Mid-foot 27.2 cm Medial Malleolus 32.4 cm 10 cm From Medial Malleolus 30.7 cm 20 cm From Medial Malleolus 40.6 cm 30 cm From Medial Malleolus 42.5 cm 40 cm From Medial Malleolus 45.7 cm 50 cm From Medial Malleolus 46.1 cm 60 cm From Medial Malleolus 49.8 cm Knee Joint 47 cm Right Affected MT Heads 24.7 cm Mid-foot 27.2 cm Medial Malleolus 33.4 cm 10 cm From Medial Malleolus 31.5 cm 20 cm From Medial Malleolus 42.7 cm 30 cm From Medial Malleolus 42.7 cm 40 cm From Medial Malleolus 45.8 cm 50 cm From Medial Malleolus 46.1 cm 60 cm From Medial Malleolus 48.4 cm Knee Joint 47 cm PT-OP-Q Treatments Start: 04/28/24 08:40 Freq: Status: Active Protocol: Document 07/29/23 13:00 [facility] (Rec: 07/29/23 14:43 [facility] [id number]) Cardio Equipment Recumbent Stepper (Sci-Fit) Duration (Minutes) 10 Resistance 1 Seat Position 10 Other to facilitate lymphatic flow after lymphedema bandaging Lymphedema Treatment Manual Lymphatic Drainage Location bimal LE's Duration 30 Comments instruction for self massage and given written and online resources Lymphedema Wrapping Body Location bimal LE's base of toes to knees Materials Tricofix size G, Artiflex (2 rolls), Comprilan (6, 8, 10), Komprex kidneys Other instruction of girlfriend Regina: PT bandaged left with Regina bandaging right same time observing and assisted by PT, encouraging patient to finish last bandage proximally as he can reach. Sequential Lymphedema Exercises Comments Sci-Fit x 10 min Patient Education Other Airos Sequential pneumatic pump right 30 min during MLD left PT-OP-R Modalities Start: 07/25/23 08:40 Freq: Status: Active Protocol: Document 07/29/23 13:00 [facility] (Rec: 07/29/23 14:43 [facility] [id number]) Compression Pump Treatment Treatment Location bimal LE's Pressure Amount (mmHg) (mmHG) 40 Inflation Time (Seconds) 30 Deflation Time (Seconds) 10 Treatment Tolerance Good Treatment Comments 30 min right PT-OP-T Assessment and Plan Start: 07/25/23 08:40 Freq: Status: Active Protocol: Document 07/29/23 13:00 [facility] (Rec: 07/29/23 13:38 [facility] [id number]) Physical Therapy Assessment Goals Three Impairment activity intolerance Impairment not currently performing any exercise program Short Term Goal (STG) Patient to improve activity tolerance to being able to walk for up to 15 minutes at a time STG Duration 08/26/23 Audio Visual Tech Goal (LTG) Patient to improve activity tolerance to being able to walk for up to 30 minutes at a time to assist with [place] fitness and edema management LTG Duration 10/26/23 Two Impairment Lymphedema Life impact scale 58% Short Term Goal (STG) Decrease Lymphedema Life Impact Scale to no greater than 40% as measure of improved activity tolerance and quality of life. STG Duration 08/26/23 Audio Visual Tech Goal (LTG) Decrease Lymphedema Life Impact Scale to no greater than 25% as measure of improved activity tolerance and quality of life. LTG Duration 10/26/23 One Impairment lymphedema bimal LE's Short Term Goal (STG) Patient will be instructed in all aspects of lymphedema self -care to include skin care, elevation, self-massage, self- bandaging/compression options, and lymphedema exercises. STG Duration 08/26/23 Audio Visual Tech Goal (LTG) Decrease patient?s lymphedema to a stable level (no increase or decrease greater than 1 cm over the course of 1 week), patient to be independent with all aspects of self-care for lymphedema, and will obtain appropriate compression garment for lymphedema management in the home. LTG Duration 10/26/23 Assessment Summary Assessment Continued decrease in circumferential measurements, good compliance to self care. Girlfrienwale Tapia demonstrated good understanding of all aspects of lymphedema care, able to bandage right LE after education and with assistance of PT. Physical Therapy Plan Frequency and Duration Frequency of Treatment 20 visits Duration of treatment (weeks) 12 Plan of Care Start Date 07/27/23 Plan of Care End Date 10/26/23 Next Visit Focus/Plan Next Note Type Treatment Note Next Visit Plan Continue CDT. ASsess self care with girlfriend bandaging .
--- NOTE | 2023-08-03 16:21 | PT-OP ANOTE ---
cancelled at last minute due to car battery
--- NOTE | 2023-08-04 15:16 | PT.OTN ---
Current Diagnoses Lymphedema, not elsewhere classified (08/04/23) Soft tissue disorder, unspecified (08/04/23) Physical Therapy Treatment Note PT-OP-A Visit Information Start: 07/25/23 08:40 Freq: Status: Active Protocol: Document 08/04/23 14:35 SAK (Rec: 08/04/23 15:16 SAK [id number]) Out-Patient Physical Therapy Visit Information Visit Information Visit Type Treatment Note Visit Start Time 14:35 Visit Stop Time 16:00 Visit Number 4 Evaluation Information Evaluation Date 07/27/23 Precautions Precautions Fentanyl use PT-OP-B Current Condition Start: 07/25/23 08:40 Freq: Status: Active Protocol: Document 08/04/23 14:35 SAK (Rec: 08/04/23 15:16 SAK [id number]) Current Condition History of Current Condition Onset Date 5 months Current Complaints lymphedema History of Current Condition developed cellulits bimal LE's for no known reason , then wound abscess right LE. Hospitalized 5 days, had surgery, antibiotics, then treatment by wound care. Wound now healed. States he has compression stockings but doesn't feel they do anything or fit well. No treatment for lymphedema other than initially put on water pills which he reports were not helpful. Prior Treatments and Tests wound care, healed wound PT-OP-C Subjective Start: 07/25/23 08:40 Freq: Status: Active Protocol: Document 08/04/23 14:35 SAK (Rec: 08/04/23 15:16 SAK [id number]) OP-PT Subjective Patient Comments Patient Comments Still working to get insurance coverage for compression bandages. Exercising more, wearing compression bandages but only has one set, can't afford second set. Doesn't feel like he and his girlfriend are bandaging as well as PT. PT-OP-F Manual Assessment Start: 07/25/23 08:40 Freq: Status: Active Protocol: Document 07/27/23 14:37 SAK (Rec: 07/27/23 16:36 SAK [id number]) Manual Assessments Soft Tissue Assessment Soft Tissue Mobility Assessment hyperkeratosis, reddish discoloration, scab anterior right aranda from healed abscess PT-OP-G Mobility & Gait Start: 07/25/23 08:40 Freq: Status: Active Protocol: Document 07/27/23 14:37 SAK (Rec: 07/27/23 16:36 [facility] [id number]) OP Gait Assessment Gait Gait Assistance Required: Independent Assistive Devices Assistive Device None Gait Deviations General Gait Pattern Antalgic,Decreased Stride Length,Decreased Feet Clearance Comments Gait Comments limited by swelling and heaviness of legs PT-OP-J Posture/Palpation/Skin Start: 07/25/23 08:40 Freq: Status: Active Protocol: Document 07/27/23 14:37 SAK (Rec: 07/27/23 16:36 [facility] [id number]) Palpation Assessment Location bimal LE's Palpation Findings Edema,Tenderness Palpation Details no increase in warmth PT-OP-K Range of Motion Start: 07/25/23 08:40 Freq: Status: Active Protocol: Document 07/27/23 14:37 [facility] (Rec: 07/27/23 16:36 [facility] [id number]) Knee Goniometric Range of Motion Knee bimal Knee ROM WFL Yes Ankle and Foot Goniometric Range of Motion Ankle and Foot bimal Ankle/Foot ROM WFL No Dorsiflexion with Knee Flexed 5 Dorsiflexion with Knee Extended 0 Ankle and Foot ROM Limitations ROM Limitations Soft Tissue Tightness,Swelling PT-OP-N Lymphedema Start: 07/25/23 08:40 Freq: Status: Active Protocol: Document 08/04/23 14:35 [facility] (Rec: 08/04/23 15:16 [facility] [id number]) Lymphedema Measurements Lower Extremity Circumference Measurements Left Affected MT Heads 25.7 cm Mid-foot 28.1 cm Medial Malleolus 34.8 cm 10 cm From Medial Malleolus 31.8 cm 20 cm From Medial Malleolus 38.8 cm 30 cm From Medial Malleolus 43.3 cm 40 cm From Medial Malleolus 43 cm 50 cm From Medial Malleolus 46 cm Knee Joint 47 cm Right Affected MT Heads 25.3 cm Mid-foot 28 cm Medial Malleolus 35.7 cm 10 cm From Medial Malleolus 34.2 cm 20 cm From Medial Malleolus 42.5 cm 30 cm From Medial Malleolus 44 cm 40 cm From Medial Malleolus 43.3 cm 50 cm From Medial Malleolus 48 cm Knee Joint 47.4 cm PT-OP-Q Treatments Start: 07/25/23 08:40 Freq: Status: Active Protocol: Document 08/04/23 14:35 [facility] (Rec: 08/04/23 15:16 [facility] [id number]) Cardio Equipment Recumbent Stepper (Sci-Fit) Duration (Minutes) 10 Resistance 1 Seat Position 10 Other to facilitate lymphatic flow after lymphedema bandaging Lymphedema Treatment Manual Lymphatic Drainage Location bimal LE's Duration 30 Comments instruction for self massage and given written and online resources Lymphedema Wrapping Body Location bimal LE's base of toes to knees Materials Tricofix size G, Artiflex (2 rolls), Comprilan (6, 8, 10), Komprex kidneys Other instruction of girlfriend Regina: PT bandaged left with Regina bandaging right same time observing and assisted by PT, encouraging patient to finish last bandage proximally as he can reach. Sequential Lymphedema Exercises Comments Sci-Fit x 10 min Patient Education Lymphedema Pathology further discussion Lymphedema Precautions review and issued new HO Compression Garments review Self Manual Lymphatic Drainage review Sequential Lymphedema Exercises review Other Airos Sequential pneumatic pump right 30 min during MLD left PT-OP-R Modalities Start: 07/25/23 08:40 Freq: Status: Active Protocol: Document 08/04/23 14:35 [facility] (Rec: 08/04/23 15:16 [facility] [id number]) Compression Pump Treatment Treatment Location bimal LE's Pressure Amount (mmHg) (mmHG) 40 Inflation Time (Seconds) 30 Deflation Time (Seconds) 10 Treatment Tolerance Good Treatment Comments 30 min right PT-OP-T Assessment and Plan Start: 07/25/23 08:40 Freq: Status: Active Protocol: Document 08/04/23 14:35 [facility] (Rec: 08/04/23 15:16 [facility] [id number]) Physical Therapy Assessment Goals Three Impairment activity intolerance Impairment not currently performing any exercise program Short Term Goal (STG) Patient to improve activity tolerance to being able to walk for up to 15 minutes at a time STG Duration 08/26/23 Diver Assistant Goal (LTG) Patient to improve activity tolerance to being able to walk for up to 30 minutes at a time to assist with fpc fitness and edema management LTG Duration 10/26/23 Two Impairment Lymphedema Life impact scale 58% Short Term Goal (STG) Decrease Lymphedema Life Impact Scale to no greater than 40% as measure of improved activity tolerance and quality of life. STG Duration 08/26/23 Snf Goal (LTG) Decrease Lymphedema Life Impact Scale to no greater than 25% as measure of improved activity tolerance and quality of life. LTG Duration 10/26/23 One Impairment lymphedema bimal LE's Short Term Goal (STG) Patient will be instructed in all aspects of lymphedema self -care to include skin care, elevation, self-massage, self- bandaging/compression options, and lymphedema exercises. STG Duration 08/26/23 Diver Assistant Goal (LTG) Decrease patient?s lymphedema to a stable level (no increase or decrease greater than 1 cm over the course of 1 week), patient to be independent with all aspects of self-care for lymphedema, and will obtain appropriate compression garment for lymphedema management in the home. LTG Duration 10/26/23 Assessment Summary Assessment Circumferential measurements mostly increased, has had bandages off most of day due to laundering, unable to afford second set, checking to see if insurance covered. Issued second set bandages today and asked to replace when able. Physical Therapy Plan Frequency and Duration Frequency of Treatment 20 visits Duration of treatment (weeks) 12 Plan of Care Start Date 07/27/23 Plan of Care End Date 10/26/23 Therapeutic Interventions Therapeutic Interventions Home Exercise Program, Lymphedema Management,Manual Therapy,Patient/Caregiver Education,Self-Care/Home Management,Soft Tissue Mobilization,Taping, Therapeutic Exercises Modalities Vasopneumatic Devices Other Therapeutic Interventions assist with obtaining compression garments. Next Visit Focus/Plan Next Note Type Treatment Note Next Visit Plan Continue CDT including patient and girlfriend training.
--- NOTE | 2023-08-04 16:25 | PT.OTN ---
Current Diagnoses Lymphedema, not elsewhere classified (08/04/23) Soft tissue disorder, unspecified (08/04/23) Physical Therapy Treatment Note PT-OP-A Visit Information Start: 07/25/23 08:40 Freq: Status: Active Protocol: Document 08/04/23 14:35 SAK (Rec: 08/04/23 15:16 SAK [id number]) Out-Patient Physical Therapy Visit Information Visit Information Visit Type Treatment Note Visit Start Time 14:35 Visit Stop Time 16:00 Visit Number 4 Evaluation Information Evaluation Date 07/27/23 Precautions Precautions Fentanyl use PT-OP-B Current Condition Start: 07/25/23 08:40 Freq: Status: Active Protocol: Document 08/04/23 14:35 SAK (Rec: 08/04/23 15:16 SAK [id number]) Current Condition History of Current Condition Onset Date 5 months Current Complaints lymphedema History of Current Condition developed cellulits bimal LE's for no known reason , then wound abscess right LE. Hospitalized 5 days, had surgery, antibiotics, then treatment by wound care. Wound now healed. States he has compression stockings but doesn't feel they do anything or fit well. No treatment for lymphedema other than initially put on water pills which he reports were not helpful. Prior Treatments and Tests wound care, healed wound Treatment Goals Patient/Caregiver Goals decrease lymphedema, be able to self manage PT-OP-C Subjective Start: 07/25/23 08:40 Freq: Status: Active Protocol: Document 08/04/23 14:35 SAK (Rec: 08/04/23 15:16 SAK [id number]) OP-PT Subjective Patient Comments Patient Comments Still working to get insurance coverage for compression bandages. Exercising more, wearing compression bandages but only has one set, can't afford second set. Doesn't feel like he and his girlfriend are bandaging as well as PT. PT-OP-F Manual Assessment Start: 07/25/23 08:40 Freq: Status: Active Protocol: Document 07/27/23 14:37 SAK (Rec: 07/27/23 16:36 SAK [id number]) Manual Assessments Soft Tissue Assessment Soft Tissue Mobility Assessment hyperkeratosis, reddish discoloration, scab anterior right aranda from healed abscess PT-OP-G Mobility & Gait Start: 07/25/23 08:40 Freq: Status: Active Protocol: Document 07/27/23 14:37 [facility] (Rec: 07/27/23 16:36 [facility] [id number]) OP Gait Assessment Gait Gait Assistance Required: Independent Assistive Devices Assistive Device None Gait Deviations General Gait Pattern Antalgic,Decreased Stride Length,Decreased Feet Clearance Comments Gait Comments limited by swelling and heaviness of legs PT-OP-J Posture/Palpation/Skin Start: 07/25/23 08:40 Freq: Status: Active Protocol: Document 07/27/23 14:37 [facility] (Rec: 07/27/23 16:36 [facility] [id number]) Palpation Assessment Location bimal LE's Palpation Findings Edema,Tenderness Palpation Details no increase in warmth PT-OP-K Range of Motion Start: 07/25/23 08:40 Freq: Status: Active Protocol: Document 07/27/23 14:37 [facility] (Rec: 07/27/23 16:36 [facility] [id number]) Knee Goniometric Range of Motion Knee bimal Knee ROM WFL Yes Ankle and Foot Goniometric Range of Motion Ankle and Foot bimal Ankle/Foot ROM WFL No Dorsiflexion with Knee Flexed 5 Dorsiflexion with Knee Extended 0 Ankle and Foot ROM Limitations ROM Limitations Soft Tissue Tightness,Swelling PT-OP-N Lymphedema Start: 07/25/23 08:40 Freq: Status: Active Protocol: Document 08/04/23 14:35 [facility] (Rec: 08/04/23 15:16 [facility] [id number]) Lymphedema Measurements Lower Extremity Circumference Measurements Left Affected MT Heads 25.7 cm Mid-foot 28.1 cm Medial Malleolus 34.8 cm 10 cm From Medial Malleolus 31.8 cm 20 cm From Medial Malleolus 38.8 cm 30 cm From Medial Malleolus 43.3 cm 40 cm From Medial Malleolus 43 cm 50 cm From Medial Malleolus 46 cm Knee Joint 47 cm Right Affected MT Heads 25.3 cm Mid-foot 28 cm Medial Malleolus 35.7 cm 10 cm From Medial Malleolus 34.2 cm 20 cm From Medial Malleolus 42.5 cm 30 cm From Medial Malleolus 44 cm 40 cm From Medial Malleolus 43.3 cm 50 cm From Medial Malleolus 48 cm Knee Joint 47.4 cm PT-OP-Q Treatments Start: 07/25/23 08:40 Freq: Status: Active Protocol: Document 08/04/23 14:35 [facility] (Rec: 08/04/23 15:16 [facility] [id number]) Cardio Equipment Recumbent Stepper (Sci-Fit) Duration (Minutes) 10 Resistance 1 Seat Position 10 Other to facilitate lymphatic flow after lymphedema bandaging Lymphedema Treatment Manual Lymphatic Drainage Location bimal LE's Duration 30 Lymphedema Wrapping Body Location bimal LE's base of toes to knees Materials Tricofix size G, Artiflex (2 rolls), Comprilan (6, 8, 10), Komprex kidneys Other reviewed bandaging with girlfriend Regina: PT bandaged left with Regina bandaging right same time observing and assisted by PT, encouraging patient to finish last bandage proximally as he can reach. Sequential Lymphedema Exercises Comments Sci-Fit x 10 min Patient Education Lymphedema Pathology further discussion Lymphedema Precautions review and issued new HO Compression Garments review Self Manual Lymphatic Drainage review Sequential Lymphedema Exercises review Other Airos Sequential pneumatic pump right 30 min during MLD left PT-OP-R Modalities Start: 07/25/23 08:40 Freq: Status: Active Protocol: Document 08/04/23 14:35 [facility] (Rec: 08/04/23 15:16 [facility] [id number]) Compression Pump Treatment Treatment Location bimal LE's Pressure Amount (mmHg) (mmHG) 40 Inflation Time (Seconds) 30 Deflation Time (Seconds) 10 Treatment Tolerance Good Treatment Comments 30 min right PT-OP-T Assessment and Plan Start: 07/25/23 08:40 Freq: Status: Active Protocol: Document 08/04/23 14:35 [facility] (Rec: 08/04/23 15:16 [facility] [id number]) Physical Therapy Assessment Goals Three Impairment activity intolerance Impairment not currently performing any exercise program Short Term Goal (STG) Patient to improve activity tolerance to being able to walk for up to 15 minutes at a time STG Duration 08/26/23 Long-Term Goal (LTG) Patient to improve activity tolerance to being able to walk for up to 30 minutes at a time to assist with [place] fitness and edema management LTG Duration 10/26/23 Two Impairment Lymphedema Life impact scale 58% Short Term Goal (STG) Decrease Lymphedema Life Impact Scale to no greater than 40% as measure of improved activity tolerance and quality of life. STG Duration 08/26/23 Long-Term Goal (LTG) Decrease Lymphedema Life Impact Scale to no greater than 25% as measure of improved activity tolerance and quality of life. LTG Duration 10/26/23 One Impairment lymphedema bimal LE's Short Term Goal (STG) Patient will be instructed in all aspects of lymphedema self -care to include skin care, elevation, self-massage, self- bandaging/compression options, and lymphedema exercises. STG Duration 08/26/23 Long-Term Goal (LTG) Decrease patient?s lymphedema to a stable level (no increase or decrease greater than 1 cm over the course of 1 week), patient to be independent with all aspects of self-care for lymphedema, and will obtain appropriate compression garment for lymphedema management in the home. LTG Duration 10/26/23 Assessment Summary Assessment Circumferential measurements mostly increased, has had bandages off most of day due to laundering, unable to afford second set, checking to see if insurance covered. Issued second set bandages today and asked to replace when able. Physical Therapy Plan Frequency and Duration Frequency of Treatment 20 visits Duration of treatment (weeks) 12 Plan of Care Start Date 07/27/23 Plan of Care End Date 10/26/23 Therapeutic Interventions Therapeutic Interventions Home Exercise Program, Lymphedema Management,Manual Therapy,Patient/Caregiver Education,Self-Care/Home Management,Soft Tissue Mobilization,Taping, Therapeutic Exercises Modalities Vasopneumatic Devices Other Therapeutic Interventions assist with obtaining compression garments. Next Visit Focus/Plan Next Note Type Treatment Note Next Visit Plan Continue CDT including patient and girlfriend training.
--- NOTE | 2023-08-05 16:16 | PT.OTN ---
Current Diagnoses Lymphedema, not elsewhere classified (08/05/23) Soft tissue disorder, unspecified (08/05/23) Physical Therapy Treatment Note PT-OP-A Visit Information Start: 07/25/23 08:40 Freq: Status: Active Protocol: Document 08/05/23 13:01 SAK (Rec: 08/05/23 13:15 SAK [id number]) Out-Patient Physical Therapy Visit Information Visit Information Visit Type Treatment Note Visit Start Time 13:01 Visit Stop Time 14:30 Visit Number 5 Evaluation Information Evaluation Date 07/27/23 Precautions Precautions Fentanyl use PT-OP-B Current Condition Start: 07/25/23 08:40 Freq: Status: Active Protocol: Document 08/05/23 13:01 SAK (Rec: 08/05/23 13:15 [facility] [id number]) Current Condition History of Current Condition Onset Date 5 months Current Complaints lymphedema History of Current Condition developed cellulits bimal LE's for no known reason , then wound abscess right LE. Hospitalized 5 days, had surgery, antibiotics, then treatment by wound care. Wound now healed. States he has compression stockings but doesn't feel they do anything or fit well. No treatment for lymphedema other than initially put on water pills which he reports were not helpful. Prior Treatments and Tests wound care, healed wound Treatment Goals Patient/Caregiver Goals decrease lymphedema, be able to self manage PT-OP-C Subjective Start: 07/25/23 08:40 Freq: Status: Active Protocol: Document 08/05/23 13:01 SAK (Rec: 08/05/23 13:15 [facility] [id number]) OP-PT Subjective Patient Comments Patient Comments Able to wear compression all night. No new c/o. PT-OP-F Manual Assessment Start: 07/25/23 08:40 Freq: Status: Active Protocol: Document 07/27/23 14:37 SAK (Rec: 07/27/23 16:36 SAK [id number]) Manual Assessments Soft Tissue Assessment Soft Tissue Mobility Assessment hyperkeratosis, reddish discoloration, scab anterior right aranda from healed abscess PT-OP-G Mobility & Gait Start: 07/25/23 08:40 Freq: Status: Active Protocol: Document 07/27/23 14:37 SAK (Rec: 07/27/23 16:36 [facility] [id number]) OP Gait Assessment Gait Gait Assistance Required: Independent Assistive Devices Assistive Device None Gait Deviations General Gait Pattern Antalgic,Decreased Stride Length,Decreased Feet Clearance Comments Gait Comments limited by swelling and heaviness of legs PT-OP-J Posture/Palpation/Skin Start: 07/25/23 08:40 Freq: Status: Active Protocol: Document 07/27/23 14:37 SAK (Rec: 07/27/23 16:36 [facility] [id number]) Palpation Assessment Location bimal LE's Palpation Findings Edema,Tenderness Palpation Details no increase in warmth PT-OP-K Range of Motion Start: 07/25/23 08:40 Freq: Status: Active Protocol: Document 07/27/23 14:37 SAK (Rec: 07/27/23 16:36 [facility] [id number]) Knee Goniometric Range of Motion Knee bimal Knee ROM WFL Yes Ankle and Foot Goniometric Range of Motion Ankle and Foot bimal Ankle/Foot ROM WFL No Dorsiflexion with Knee Flexed 5 Dorsiflexion with Knee Extended 0 Ankle and Foot ROM Limitations ROM Limitations Soft Tissue Tightness,Swelling PT-OP-N Lymphedema Start: 07/25/23 08:40 Freq: Status: Active Protocol: Document 08/05/23 13:01 [facility] (Rec: 08/05/23 13:31 [facility] [id number]) Lymphedema Measurements Lower Extremity Circumference Measurements Left Affected MT Heads 23.5 cm Mid-foot 27.5 cm Medial Malleolus 32.7 cm 10 cm From Medial Malleolus 29.3 cm 20 cm From Medial Malleolus 38.4 cm 30 cm From Medial Malleolus 41.7 cm 40 cm From Medial Malleolus 43.7 cm 50 cm From Medial Malleolus 48.2 cm 60 cm From Medial Malleolus 52.7 cm Knee Joint 46.8 cm Right Affected MT Heads 25 cm Mid-foot 26.8 cm Medial Malleolus 34 cm 10 cm From Medial Malleolus 31.3 cm 20 cm From Medial Malleolus 41.2 cm 30 cm From Medial Malleolus 43.4 cm 40 cm From Medial Malleolus 43.3 cm 50 cm From Medial Malleolus 47.9 cm 60 cm From Medial Malleolus 48.5 cm Knee Joint 47.4 cm PT-OP-Q Treatments Start: 07/25/23 08:40 Freq: Status: Active Protocol: Document 08/05/23 13:01 [facility] (Rec: 08/05/23 13:31 [facility] [id number]) Cardio Equipment Recumbent Stepper (Sci-Fit) Duration (Minutes) 10 Resistance 1 Seat Position 10 Other to facilitate lymphatic flow after lymphedema bandaging Lymphedema Treatment Manual Lymphatic Drainage Location bimal LE's Duration 30 Lymphedema Wrapping Body Location bimal LE's base of toes to knees Materials Tricofix size G, Artiflex (2 rolls), Comprilan (6, 8, 10), Komprex kidneys Other reviewed bandaging with girlfriend Regina: PT bandaged left with Regina bandaging right same time observing and assisted by PT, encouraging patient to finish last bandage proximally as he can reach. Sequential Lymphedema Exercises Comments Sci-Fit x 10 min Patient Education Lymphedema Pathology further discussion Lymphedema Precautions review and issued new HO Compression Garments review Self Manual Lymphatic Drainage review Sequential Lymphedema Exercises review Other Airos Sequential pneumatic pump right 30 min during MLD left PT-OP-R Modalities Start: 07/25/23 08:40 Freq: Status: Active Protocol: Document 08/05/23 13:01 [facility] (Rec: 08/05/23 13:31 [facility] [id number]) Compression Pump Treatment Treatment Location bimal LE's Pressure Amount (mmHg) (mmHG) 40 Inflation Time (Seconds) 30 Deflation Time (Seconds) 10 Treatment Tolerance Good Treatment Comments 30 min right PT-OP-T Assessment and Plan Start: 07/25/23 08:40 Freq: Status: Active Protocol: Document 08/05/23 13:01 [facility] (Rec: 08/05/23 13:15 [facility] [id number]) Physical Therapy Assessment Goals Three Impairment activity intolerance Impairment not currently performing any exercise program Short Term Goal (STG) Patient to improve activity tolerance to being able to walk for up to 15 minutes at a time STG Duration 08/26/23 Electrical Calibrator Goal (LTG) Patient to improve activity tolerance to being able to walk for up to 30 minutes at a time to assist with senior care fitness and edema management LTG Duration 10/26/23 Two Impairment Lymphedema Life impact scale 58% Short Term Goal (STG) Decrease Lymphedema Life Impact Scale to no greater than 40% as measure of improved activity tolerance and quality of life. STG Duration 08/26/23 Electrical Calibrator Goal (LTG) Decrease Lymphedema Life Impact Scale to no greater than 25% as measure of improved activity tolerance and quality of life. LTG Duration 10/26/23 One Impairment lymphedema bimal LE's Short Term Goal (STG) Patient will be instructed in all aspects of lymphedema self -care to include skin care, elevation, self-massage, self- bandaging/compression options, and lymphedema exercises. STG Duration 08/26/23 Snf Goal (LTG) Decrease patient?s lymphedema to a stable level (no increase or decrease greater than 1 cm over the course of 1 week), patient to be independent with all aspects of self-care for lymphedema, and will obtain appropriate compression garment for lymphedema management in the home. LTG Duration 10/26/23 Physical Therapy Plan Frequency and Duration Frequency of Treatment 20 visits Duration of treatment (weeks) 12 Plan of Care Start Date 07/27/23 Plan of Care End Date 10/26/23 Therapeutic Interventions Therapeutic Interventions Home Exercise Program, Lymphedema Management,Manual Therapy,Patient/Caregiver Education,Self-Care/Home Management,Soft Tissue Mobilization,Taping, Therapeutic Exercises Modalities Vasopneumatic Devices Other Therapeutic Interventions assist with obtaining compression garments. Next Visit Focus/Plan Next Note Type Treatment Note Next Visit Plan Continue CDT including patient and girlfriend training.
--- NOTE | 2023-08-05 16:35 | PT.OTN ---
Current Diagnoses Lymphedema, not elsewhere classified (08/05/23) Soft tissue disorder, unspecified (08/05/23) Physical Therapy Treatment Note PT-OP-A Visit Information Start: 07/25/23 08:40 Freq: Status: Active Protocol: Document 08/05/23 13:01 SAK (Rec: 08/05/23 13:15 SAK [id number]) Out-Patient Physical Therapy Visit Information Visit Information Visit Type Treatment Note Visit Start Time 13:01 Visit Stop Time 14:30 Visit Number 5 Evaluation Information Evaluation Date 07/27/23 Precautions Precautions Fentanyl use PT-OP-B Current Condition Start: 07/25/23 08:40 Freq: Status: Active Protocol: Document 08/05/23 13:01 SAK (Rec: 08/05/23 13:15 SAK [id number]) Current Condition History of Current Condition Onset Date 5 months Current Complaints lymphedema History of Current Condition developed cellulits bimal LE's for no known reason , then wound abscess right LE. Hospitalized 5 days, had surgery, antibiotics, then treatment by wound care. Wound now healed. States he has compression stockings but doesn't feel they do anything or fit well. No treatment for lymphedema other than initially put on water pills which he reports were not helpful. Prior Treatments and Tests wound care, healed wound Treatment Goals Patient/Caregiver Goals decrease lymphedema, be able to self manage PT-OP-C Subjective Start: 07/25/23 08:40 Freq: Status: Active Protocol: Document 08/05/23 13:01 SAK (Rec: 08/05/23 13:15 [facility] [id number]) OP-PT Subjective Patient Comments Patient Comments Able to wear compression all night. No new c/o. Girlfriend Regina comes to appointment again to continue training for bandaging. PT-OP-F Manual Assessment Start: 07/25/23 08:40 Freq: Status: Active Protocol: Document 07/27/23 14:37 SAK (Rec: 07/27/23 16:36 SAK [id number]) Manual Assessments Soft Tissue Assessment Soft Tissue Mobility Assessment hyperkeratosis, reddish discoloration, scab anterior right aranda from healed abscess PT-OP-G Mobility & Gait Start: 07/25/23 08:40 Freq: Status: Active Protocol: Document 07/27/23 14:37 SAK (Rec: 07/27/23 16:36 SAK [id number]) OP Gait Assessment Gait Gait Assistance Required: Independent Assistive Devices Assistive Device None Gait Deviations General Gait Pattern Antalgic,Decreased Stride Length,Decreased Feet Clearance Comments Gait Comments limited by swelling and heaviness of legs PT-OP-J Posture/Palpation/Skin Start: 07/25/23 08:40 Freq: Status: Active Protocol: Document 07/27/23 14:37 [facility] (Rec: 07/27/23 16:36 [facility] [id number]) Palpation Assessment Location bimal LE's Palpation Findings Edema,Tenderness Palpation Details no increase in warmth PT-OP-K Range of Motion Start: 07/25/23 08:40 Freq: Status: Active Protocol: Document 07/27/23 14:37 [facility] (Rec: 07/27/23 16:36 [facility] [id number]) Knee Goniometric Range of Motion Knee bimal Knee ROM WFL Yes Ankle and Foot Goniometric Range of Motion Ankle and Foot bimal Ankle/Foot ROM WFL No Dorsiflexion with Knee Flexed 5 Dorsiflexion with Knee Extended 0 Ankle and Foot ROM Limitations ROM Limitations Soft Tissue Tightness,Swelling PT-OP-N Lymphedema Start: 07/25/23 08:40 Freq: Status: Active Protocol: Document 08/05/23 13:01 [facility] (Rec: 08/05/23 13:31 [facility] [id number]) Lymphedema Measurements Lower Extremity Circumference Measurements Left Affected MT Heads 23.5 cm Mid-foot 27.5 cm Medial Malleolus 32.7 cm 10 cm From Medial Malleolus 29.3 cm 20 cm From Medial Malleolus 38.4 cm 30 cm From Medial Malleolus 41.7 cm 40 cm From Medial Malleolus 43.7 cm 50 cm From Medial Malleolus 48.2 cm 60 cm From Medial Malleolus 52.7 cm Knee Joint 46.8 cm Right Affected MT Heads 25 cm Mid-foot 26.8 cm Medial Malleolus 34 cm 10 cm From Medial Malleolus 31.3 cm 20 cm From Medial Malleolus 41.2 cm 30 cm From Medial Malleolus 43.4 cm 40 cm From Medial Malleolus 43.3 cm 50 cm From Medial Malleolus 47.9 cm 60 cm From Medial Malleolus 48.5 cm Knee Joint 47.4 cm PT-OP-Q Treatments Start: 07/25/23 08:40 Freq: Status: Active Protocol: Document 08/05/23 13:01 [facility] (Rec: 08/05/23 13:31 [facility] [id number]) Cardio Equipment Recumbent Stepper (Sci-Fit) Duration (Minutes) 10 Resistance 1 Seat Position 10 Other to facilitate lymphatic flow after lymphedema bandaging Lymphedema Treatment Manual Lymphatic Drainage Location bimal LE's Duration 30 Lymphedema Wrapping Body Location bimal LE's base of toes to knees Materials Tricofix size G, Artiflex (2 rolls), Comprilan (6, 8, 10), Komprex kidneys Other reviewed bandaging with girlfriend Regina: PT bandaged left with Regina bandaging right same time observing and assisted by PT, encouraging patient to finish last bandage proximally as he can reach. Sequential Lymphedema Exercises Comments Sci-Fit x 10 min Patient Education Compression Garments recommended patient make appointment with [facility] Sequential Lymphedema Exercises encouraged increase repetitions and activity as tolerated. Other Airos Sequential pneumatic pump right and left 30 min during MLD proximally PT-OP-R Modalities Start: 07/25/23 08:40 Freq: Status: Active Protocol: Document 08/05/23 13:01 [facility] (Rec: 08/05/23 13:31 [facility] [id number]) Compression Pump Treatment Treatment Location bimal LE's Pressure Amount (mmHg) (mmHG) 40 Inflation Time (Seconds) 30 Deflation Time (Seconds) 10 Treatment Tolerance Good Treatment Comments bimal PT-OP-T Assessment and Plan Start: 07/25/23 08:40 Freq: Status: Active Protocol: Document 08/05/23 13:01 [facility] (Rec: 08/05/23 13:15 [facility] [id number]) Physical Therapy Assessment Goals Three Impairment activity intolerance Impairment not currently performing any exercise program Short Term Goal (STG) Patient to improve activity tolerance to being able to walk for up to 15 minutes at a time STG Duration 08/26/23 Correction Goal (LTG) Patient to improve activity tolerance to being able to walk for up to 30 minutes at a time to assist with penitentiary fitness and edema management LTG Duration 10/26/23 Two Impairment Lymphedema Life impact scale 58% Short Term Goal (STG) Decrease Lymphedema Life Impact Scale to no greater than 40% as measure of improved activity tolerance and quality of life. STG Duration 08/26/23 Mill Worker Goal (LTG) Decrease Lymphedema Life Impact Scale to no greater than 25% as measure of improved activity tolerance and quality of life. LTG Duration 10/26/23 One Impairment lymphedema bimal LE's Short Term Goal (STG) Patient will be instructed in all aspects of lymphedema self -care to include skin care, elevation, self-massage, self- bandaging/compression options, and lymphedema exercises. STG Duration 08/26/23 Correction Goal (LTG) Decrease patient?s lymphedema to a stable level (no increase or decrease greater than 1 cm over the course of 1 week), patient to be independent with all aspects of self-care for lymphedema, and will obtain appropriate compression garment for lymphedema management in the home. LTG Duration 10/26/23 Assessment Summary Assessment Almost all measurements showed decrease in circumference. Continued CDT and training of eRgina to increase her skill and confidence with bandaging patient. Patient encouraged to do as much as possible himself but has difficulty reaching. Good progress with dec measurements. Patient encouraged to make appointment with [facility] soon due to good progress and anticipation of stabilization of measurements soon. Physical Therapy Plan Frequency and Duration Frequency of Treatment 20 visits Duration of treatment (weeks) 12 Plan of Care Start Date 07/27/23 Plan of Care End Date 10/26/23 Therapeutic Interventions Therapeutic Interventions Home Exercise Program, Lymphedema Management,Manual Therapy,Patient/Caregiver Education,Self-Care/Home Management,Soft Tissue Mobilization,Taping, Therapeutic Exercises Modalities Vasopneumatic Devices Other Therapeutic Interventions assist with obtaining compression garments. Next Visit Focus/Plan Next Note Type Treatment Note Next Visit Plan Continue CDT including patient and girlfriend training.
--- NOTE | 2023-08-12 13:49 | PT.OTN ---
Current Diagnoses Lymphedema, not elsewhere classified (08/12/23) Soft tissue disorder, unspecified (08/12/23) Physical Therapy Treatment Note PT-OP-A Visit Information Start: 07/25/23 08:40 Freq: Status: Active Protocol: Document 08/12/23 13:00 SAK (Rec: 08/12/23 13:49 SAK [id number]) Out-Patient Physical Therapy Visit Information Visit Information Visit Type Treatment Note Visit Start Time 13:01 Visit Stop Time 14:30 Visit Number 6 Evaluation Information Evaluation Date 07/27/23 Precautions Precautions Fentanyl use PT-OP-B Current Condition Start: 07/25/23 08:40 Freq: Status: Active Protocol: Document 08/12/23 13:00 SAK (Rec: 08/12/23 13:49 [facility] [id number]) Current Condition History of Current Condition Onset Date 5 months Current Complaints lymphedema History of Current Condition developed cellulits bimal LE's for no known reason , then wound abscess right LE. Hospitalized 5 days, had surgery, antibiotics, then treatment by wound care. Wound now healed. States he has compression stockings but doesn't feel they do anything or fit well. No treatment for lymphedema other than initially put on water pills which he reports were not helpful. Prior Treatments and Tests wound care, healed wound Treatment Goals Patient/Caregiver Goals decrease lymphedema, be able to self manage PT-OP-C Subjective Start: 07/25/23 08:40 Freq: Status: Active Protocol: Document 08/12/23 13:00 SAK (Rec: 08/12/23 13:49 [facility] [id number]) OP-PT Subjective Patient Comments Patient Comments Pt. informed paperwork sent to [facility] regarding request for compression stockings. Patient having car problems on Wednesday, not able to come to PT. PT-OP-F Manual Assessment Start: 07/25/23 08:40 Freq: Status: Active Protocol: Document 07/27/23 14:37 SAK (Rec: 07/27/23 16:36 SAK [id number]) Manual Assessments Soft Tissue Assessment Soft Tissue Mobility Assessment hyperkeratosis, reddish discoloration, scab anterior right aranda from healed abscess PT-OP-G Mobility & Gait Start: 07/25/23 08:40 Freq: Status: Active Protocol: Document 07/27/23 14:37 SAK (Rec: 07/27/23 16:36 [facility] [id number]) OP Gait Assessment Gait Gait Assistance Required: Independent Assistive Devices Assistive Device None Gait Deviations General Gait Pattern Antalgic,Decreased Stride Length,Decreased Feet Clearance Comments Gait Comments limited by swelling and heaviness of legs PT-OP-J Posture/Palpation/Skin Start: 07/25/23 08:40 Freq: Status: Active Protocol: Document 07/27/23 14:37 [facility] (Rec: 07/27/23 16:36 [facility] [id number]) Palpation Assessment Location bimal LE's Palpation Findings Edema,Tenderness Palpation Details no increase in warmth PT-OP-K Range of Motion Start: 07/25/23 08:40 Freq: Status: Active Protocol: Document 07/27/23 14:37 [facility] (Rec: 07/27/23 16:36 [facility] [id number]) Knee Goniometric Range of Motion Knee bimal Knee ROM WFL Yes Ankle and Foot Goniometric Range of Motion Ankle and Foot bimal Ankle/Foot ROM WFL No Dorsiflexion with Knee Flexed 5 Dorsiflexion with Knee Extended 0 Ankle and Foot ROM Limitations ROM Limitations Soft Tissue Tightness,Swelling PT-OP-N Lymphedema Start: 07/25/23 08:40 Freq: Status: Active Protocol: Document 08/12/23 13:00 [facility] (Rec: 08/12/23 13:49 [facility] [id number]) Lymphedema Measurements Lower Extremity Circumference Measurements Left Affected MT Heads 26.6 cm Mid-foot 29.2 cm Medial Malleolus 33.8 cm 10 cm From Medial Malleolus 29.8 cm 20 cm From Medial Malleolus 39 cm 30 cm From Medial Malleolus 43.4 cm 40 cm From Medial Malleolus 46 cm 50 cm From Medial Malleolus 48.7 cm 60 cm From Medial Malleolus 54.3 cm Knee Joint 47.2 cm Right Affected MT Heads 25.8 cm Mid-foot 27.6 cm Medial Malleolus 32.8 cm 10 cm From Medial Malleolus 31.6 cm 20 cm From Medial Malleolus 40.7 cm 30 cm From Medial Malleolus 43.1 cm 40 cm From Medial Malleolus 42.7 cm 50 cm From Medial Malleolus 47.2 cm 60 cm From Medial Malleolus 49 cm Knee Joint 46.3 cm PT-OP-Q Treatments Start: 07/25/23 08:40 Freq: Status: Active Protocol: Document 08/12/23 13:00 [facility] (Rec: 08/12/23 13:49 [facility] [id number]) Lymphedema Treatment Manual Lymphatic Drainage Location bimal LE's Duration 30 Lymphedema Wrapping Body Location bimal LE's base of toes to knees Materials Tricofix size G, Artiflex (2 rolls), Comprilan (6, 8, 10), Komprex kidneys Other reviewed bandaging with girlfriend Regina: PT bandaged left with Regina bandaging right same time observing and assisted by PT, encouraging patient to finish last bandage proximally as he can reach. Sequential Lymphedema Exercises Comments Sci-Fit x 10 min Patient Education Compression Garments recommended patient make appointment with [facility] Sequential Lymphedema Exercises encouraged increase repetitions and activity as tolerated. Other [employer]ros Sequential pneumatic pump right and left 30 min during MLD proximally PT-OP-R Modalities Start: 07/25/23 08:40 Freq: Status: Active Protocol: Document 08/05/23 13:01 [facility] (Rec: 08/05/23 13:31 [facility] [id number]) Compression Pump Treatment Treatment Location bimal LE's Pressure Amount (mmHg) (mmHG) 40 Inflation Time (Seconds) 30 Deflation Time (Seconds) 10 Treatment Tolerance Good Treatment Comments bimal PT-OP-T Assessment and Plan Start: 07/25/23 08:40 Freq: Status: Active Protocol: Document 08/12/23 13:00 [facility] (Rec: 08/12/23 13:49 [facility] [id number]) Physical Therapy Assessment Goals Three Impairment activity intolerance Impairment not currently performing any exercise program Short Term Goal (STG) Patient to improve activity tolerance to being able to walk for up to 15 minutes at a time STG Duration 08/26/23 Pig Sticker Goal (LTG) Patient to improve activity tolerance to being able to walk for up to 30 minutes at a time to assist with assisted fitness and edema management LTG Duration 10/26/23 Two Impairment Lymphedema Life impact scale 58% Short Term Goal (STG) Decrease Lymphedema Life Impact Scale to no greater than 40% as measure of improved activity tolerance and quality of life. STG Duration 08/26/23 Pig Sticker Goal (LTG) Decrease Lymphedema Life Impact Scale to no greater than 25% as measure of improved activity tolerance and quality of life. LTG Duration 10/26/23 One Impairment lymphedema bimal LE's Short Term Goal (STG) Patient will be instructed in all aspects of lymphedema self -care to include skin care, elevation, self-massage, self- bandaging/compression options, and lymphedema exercises. STG Duration 08/26/23 Prison Goal (LTG) Decrease patient?s lymphedema to a stable level (no increase or decrease greater than 1 cm over the course of 1 week), patient to be independent with all aspects of self-care for lymphedema, and will obtain appropriate compression garment for lymphedema management in the home. LTG Duration 10/26/23 Assessment Summary Assessment Circumferential measurements decreased on right but increased on left, likely due to scratches on left leg from patient itching. Advised anti -itch cream or medication, scratches an avenue for infection and inflammation. Needs to make an appointment with [facility] to be fit with compression stockings. Patient interested in sequential pneumatic pump for home use, will request after seen for at least 30 days of conservative care. Physical Therapy Plan Frequency and Duration Frequency of Treatment 20 visits Duration of treatment (weeks) 12 Plan of Care Start Date 07/27/23 Plan of Care End Date 10/26/23 Therapeutic Interventions Therapeutic Interventions Home Exercise Program, Lymphedema Management,Manual Therapy,Patient/Caregiver Education,Self-Care/Home Management,Soft Tissue Mobilization,Taping, Therapeutic Exercises Modalities Vasopneumatic Devices Other Therapeutic Interventions assist with obtaining compression garments. Next Visit Focus/Plan Next Visit Plan Continue CDT including patient and girlfriend training.
--- NOTE | 2023-08-26 16:39 | PT.OTN ---
Current Diagnoses Lymphedema, not elsewhere classified (08/26/23) Soft tissue disorder, unspecified (08/26/23) Physical Therapy Treatment Note PT-OP-A Visit Information Start: 07/25/23 08:40 Freq: Status: Active Protocol: Document 08/26/23 16:03 SAK (Rec: 08/26/23 16:39 SAK [id number]) Out-Patient Physical Therapy Visit Information Visit Information Visit Type Treatment Note Visit Note Today's treatment short due to scheduling issues. Visit Start Time 16:03 Visit Stop Time 16:29 Visit Number 7 Number of CHRONOMETER ADJUSTER Visits 0 Evaluation Information Evaluation Date 07/27/23 Precautions Precautions Fentanyl use history PT-OP-B Current Condition Start: 07/25/23 08:40 Freq: Status: Active Protocol: Document 08/26/23 16:03 SAK (Rec: 08/26/23 16:39 [facility] [id number]) Current Condition History of Current Condition Onset Date 5 months Current Complaints lymphedema History of Current Condition developed cellulits bimal LE's for no known reason , then wound abscess right LE. Hospitalized 5 days, had surgery, antibiotics, then treatment by wound care. Wound now healed. States he has compression stockings but doesn't feel they do anything or fit well. No treatment for lymphedema other than initially put on water pills which he reports were not helpful. Prior Treatments and Tests wound care, healed wound Treatment Goals Patient/Caregiver Goals decrease lymphedema, be able to self manage PT-OP-C Subjective Start: 07/25/23 08:40 Freq: Status: Active Protocol: Document 08/26/23 16:03 SAK (Rec: 08/26/23 16:39 [facility] [id number]) OP-PT Subjective Patient Comments Patient Comments Patient continues to struggle with PT-OP-F Manual Assessment Start: 07/25/23 08:40 Freq: Status: Active Protocol: Document 07/27/23 14:37 SAK (Rec: 07/27/23 16:36 SAK [id number]) Manual Assessments Soft Tissue Assessment Soft Tissue Mobility Assessment hyperkeratosis, reddish discoloration, scab anterior right aranda from healed abscess PT-OP-G Mobility & Gait Start: 07/25/23 08:40 Freq: Status: Active Protocol: Document 07/27/23 14:37 SAK (Rec: 07/27/23 16:36 SAK [id number]) OP Gait Assessment Gait Gait Assistance Required: Independent Assistive Devices Assistive Device None Gait Deviations General Gait Pattern Antalgic,Decreased Stride Length,Decreased Feet Clearance Comments Gait Comments limited by swelling and heaviness of legs PT-OP-J Posture/Palpation/Skin Start: 07/25/23 08:40 Freq: Status: Active Protocol: Document 07/27/23 14:37 SAK (Rec: 07/27/23 16:36 SAK [id number]) Palpation Assessment Location bimal LE's Palpation Findings Edema,Tenderness Palpation Details no increase in warmth PT-OP-K Range of Motion Start: 07/25/23 08:40 Freq: Status: Active Protocol: Document 07/27/23 14:37 SAK (Rec: 07/27/23 16:36 [facility] [id number]) Knee Goniometric Range of Motion Knee bimal Knee ROM WFL Yes Ankle and Foot Goniometric Range of Motion Ankle and Foot bimal Ankle/Foot ROM WFL No Dorsiflexion with Knee Flexed 5 Dorsiflexion with Knee Extended 0 Ankle and Foot ROM Limitations ROM Limitations Soft Tissue Tightness,Swelling PT-OP-N Lymphedema Start: 07/25/23 08:40 Freq: Status: Active Protocol: Document 08/26/23 16:03 [facility] (Rec: 08/26/23 16:39 [facility] [id number]) Lymphedema Measurements Lower Extremity Circumference Measurements Left Affected MT Heads 26.2 cm Mid-foot 27.7 cm Medial Malleolus 31.9 cm 10 cm From Medial Malleolus 28.9 cm 20 cm From Medial Malleolus 37.6 cm 30 cm From Medial Malleolus 42.2 cm 40 cm From Medial Malleolus 43.4 cm 50 cm From Medial Malleolus 48 cm 60 cm From Medial Malleolus 55.1 cm Knee Joint 46.4 cm Right Affected MT Heads 25.3 cm Mid-foot 26.6 cm Medial Malleolus 32.7 cm 10 cm From Medial Malleolus 29.9 cm 20 cm From Medial Malleolus 37.4 cm 30 cm From Medial Malleolus 42 cm 40 cm From Medial Malleolus 42.3 cm 50 cm From Medial Malleolus 47.4 cm 60 cm From Medial Malleolus 54 cm Knee Joint 45.9 cm PT-OP-Q Treatments Start: 07/25/23 08:40 Freq: Status: Active Protocol: Document 08/26/23 16:03 [facility] (Rec: 08/26/23 16:39 [facility] [id number]) Lymphedema Treatment Lymphedema Wrapping Body Location bimal LE's base of toes to knees Materials Tricofix size G, Artiflex (2 rolls), Comprilan (6, 8, 10), Komprex kidneys Sequential Lymphedema Exercises Location HEP Patient Education Compression Garments Waiting for insurance approval , discussed possible trial cheaper options Sequential Lymphedema Exercises encouraged increase repetitions and activity as tolerated. Other Other Encouraged continued self care , shown options online for potentially affordable compression options, patient to consider while waiting for potential insurance approval. PT-OP-R Modalities Start: 07/25/23 08:40 Freq: Status: Active Protocol: Document 08/05/23 13:01 [facility] (Rec: 08/05/23 13:31 [facility] [id number]) Compression Pump Treatment Treatment Location bimal LE's Pressure Amount (mmHg) (mmHG) 40 Inflation Time (Seconds) 30 Deflation Time (Seconds) 10 Treatment Tolerance Good Treatment Comments bimal PT-OP-T Assessment and Plan Start: 07/25/23 08:40 Freq: Status: Active Protocol: Document 08/26/23 16:03 [facility] (Rec: 08/26/23 16:39 [facility] [id number]) Physical Therapy Assessment Goals Three Impairment activity intolerance Impairment not currently performing any exercise program Short Term Goal (STG) Patient to improve activity tolerance to being able to walk for up to 15 minutes at a time 08/26/23: goal met STG Duration goal met Prison Goal (LTG) Patient to improve activity tolerance to being able to walk for up to 30 minutes at a time to assist with predatory animal exterminator fitness and edema management 08/26/23: goal progress, up to 20-25 min LTG Duration 10/26/23 Two Impairment Lymphedema Life impact scale 58% Short Term Goal (STG) Decrease Lymphedema Life Impact Scale to no greater than 40% as measure of improved activity tolerance and quality of life. 08/26/23: goal met STG Duration goal met Prison Goal (LTG) Decrease Lymphedema Life Impact Scale to no greater than 25% as measure of improved activity tolerance and quality of life. 08/26/23: goal progress LTG Duration 10/26/23 One Impairment lymphedema bimal LE's Short Term Goal (STG) Patient will be instructed in all aspects of lymphedema self -care to include skin care, elevation, self-massage, self- bandaging/compression options, and lymphedema exercises. 08/26/23: goal met STG Duration goal met Wool Sorter Goal (LTG) Decrease patient?s lymphedema to a stable level (no increase or decrease greater than 1 cm over the course of 1 week), patient to be independent with all aspects of self-care for lymphedema, and will obtain appropriate compression garment for lymphedema management in the home. LTG Duration 10/26/23 Assessment Summary Assessment Patient has completed 30 days of conservative treatment for lymphedema including skin care , elevation, manual lymphatic drainage, lymphedema exercises, and compression. Patient continues to bandage his bimal LE's with the assistance of his girlfriend. He is trying to get insurance approval for compression stockings, is unable to afford to purchase on his own. Despite good compliance to all aspects of lymphedema care he continues to have challenges with managing his lymphedema. Feel he would benefit highly from the use of a sequential pneumatic pump for self management of his bilateral LE lymphedema in the home and prevent potential complications such as cellulitis. Physical Therapy Plan Frequency and Duration Frequency of Treatment 20 visits Duration of treatment (weeks) 12 Plan of Care Start Date 07/27/23 Plan of Care End Date 10/26/23 Therapeutic Interventions Therapeutic Interventions Home Exercise Program, Lymphedema Management,Manual Therapy,Patient/Caregiver Education,Self-Care/Home Management,Soft Tissue Mobilization,Taping, Therapeutic Exercises Modalities Vasopneumatic Devices Other Therapeutic Interventions assist with obtaining compression garments. Next Visit Focus/Plan Next Note Type Treatment Note Next Visit Plan Continue CDT. Request approval for sequential pneumatic pump. Train in use of sequential pneumatic pump if approved.
--- NOTE | 2023-10-06 13:14 | PT-OP ANOTE ---
pump hasn't been approved yet; patient needs to contact Saumya Hammonds to update/clarify insurance info.
--- NOTE | 2024-06-28 12:13 | PT.OPDS ---
Current Diagnoses Lymphedema, not elsewhere classified (08/26/23) Soft tissue disorder, unspecified (08/26/23) Visit Care Team Role Provider Type Berkley Gómez DO Family Provider Physician Primary Care Provider Specialty: Family Practice Address: [address] [place] [address], [address], [address] Email: [email or web address] Jacinto Marie MD Attending Provider Physician Referring Provider Specialty: Wound Care Address: [address] [place] [address], [id number] Email: [email or web address] Visit Number Visit Number 7 Discharge Summary PT-OP-B Current Condition Start: 07/25/23 08:40 Freq: Status: Active Protocol: Document 08/26/23 16:03 SAK (Rec: 08/26/23 16:39 [facility] [id number]) Current Condition History of Current Condition Onset Date 5 months Current Complaints lymphedema History of Current Condition developed cellulits bimal LE's for no known reason , then wound abscess right LE. Hospitalized 5 days, had surgery, antibiotics, then treatment by wound care. Wound now healed. States he has compression stockings but doesn't feel they do anything or fit well. No treatment for lymphedema other than initially put on water pills which he reports were not helpful. Prior Treatments and Tests wound care, healed wound Treatment Goals Patient/Caregiver Goals decrease lymphedema, be able to self manage PT-OP-C Subjective Start: 07/25/23 08:40 Freq: Status: Active Protocol: Document 08/26/23 16:03 SAK (Rec: 08/26/23 16:39 [facility] [id number]) OP-PT Subjective Patient Comments Patient Comments Patient continues to struggle with PT-OP-F Manual Assessment Start: 07/25/23 08:40 Freq: Status: Active Protocol: Document 07/27/23 14:37 SAK (Rec: 07/27/23 16:36 SAK [id number]) Manual Assessments Soft Tissue Assessment Soft Tissue Mobility Assessment hyperkeratosis, reddish discoloration, scab anterior right aranda from healed abscess PT-OP-G Mobility & Gait Start: 07/25/23 08:40 Freq: Status: Active Protocol: Document 07/27/23 14:37 [facility] (Rec: 07/27/23 16:36 [facility] [id number]) OP Gait Assessment Gait Gait Assistance Required: Independent Assistive Devices Assistive Device None Gait Deviations General Gait Pattern Antalgic,Decreased Stride Length,Decreased Feet Clearance Comments Gait Comments limited by swelling and heaviness of legs PT-OP-J Posture/Palpation/Skin Start: 07/25/23 08:40 Freq: Status: Active Protocol: Document 07/27/23 14:37 [facility] (Rec: 07/27/23 16:36 [facility] [id number]) Palpation Assessment Location bimal LE's Palpation Findings Edema,Tenderness Palpation Details no increase in warmth PT-OP-K Range of Motion Start: 07/25/23 08:40 Freq: Status: Active Protocol: Document 07/27/23 14:37 [facility] (Rec: 07/27/23 16:36 [facility] [id number]) Knee Goniometric Range of Motion Knee bimal Knee ROM WFL Yes Ankle and Foot Goniometric Range of Motion Ankle and Foot bimal Ankle/Foot ROM WFL No Dorsiflexion with Knee Flexed 5 Dorsiflexion with Knee Extended 0 Ankle and Foot ROM Limitations ROM Limitations Soft Tissue Tightness,Swelling PT-OP-N Lymphedema Start: 07/25/23 08:40 Freq: Status: Active Protocol: Document 08/26/23 16:03 [facility] (Rec: 08/26/23 16:39 [facility] [id number]) Lymphedema Measurements Lower Extremity Circumference Measurements Left Affected MT Heads 26.2 cm Mid-foot 27.7 cm Medial Malleolus 31.9 cm 10 cm From Medial Malleolus 28.9 cm 20 cm From Medial Malleolus 37.6 cm 30 cm From Medial Malleolus 42.2 cm 40 cm From Medial Malleolus 43.4 cm 50 cm From Medial Malleolus 48 cm 60 cm From Medial Malleolus 55.1 cm Knee Joint 46.4 cm Right Affected MT Heads 25.3 cm Mid-foot 26.6 cm Medial Malleolus 32.7 cm 10 cm From Medial Malleolus 29.9 cm 20 cm From Medial Malleolus 37.4 cm 30 cm From Medial Malleolus 42 cm 40 cm From Medial Malleolus 42.3 cm 50 cm From Medial Malleolus 47.4 cm 60 cm From Medial Malleolus 54 cm Knee Joint 45.9 cm PT-OP-T Assessment and Plan Start: 07/25/23 08:40 Freq: Status: Active Protocol: Document 06/28/24 12:13 [facility] (Rec: 06/28/24 12:13 [facility] [id number]) Physical Therapy Plan Discharge Physical Therapy Discharge Reasons No Longer Attending PT
== END 2024-07-07 13:29 | disposition home or self-care (01) ==
LOC: PHYS 16:00
PROVIDERS: Family Provider Family Medicine; PCP Family Medicine; Referring Provider Surgery; Visit Provider Surgery
DX: I89.0 Lymphedema, not elsewhere classified (principal); M79.9 Soft tissue disorder, unspecified
CPT/HCPCS: 29581; 97016; 97110; 97140; 97162; 97535

== ENCOUNTER → 2024-11-07 16:35 | Outpatient (CLI) | payer OTHER, SELFPAY ==
[2023-05-19 15:28] VITALS: BMI 29.3
[2024-11-07 17:59] LABS: Hematocrit 39.7 % (41-53); Hemoglobin 13.9 g/dL (13.5-17.5); Mean Corpuscular HGB Conc 35.0 % (30-36); Mean Corpuscular Hemoglobin 29.0 PG (26-34); Mean Corpuscular Volume 82.8 fL (80-100); Platelet Count 235 X10^3/uL (150-400)
[2024-11-07 18:17] LABS: Hemoglobin A1C% w Est Avg Glu 5.5 % (4.0-6.0)
[2024-11-07 19:14] LABS: Alanine Aminotransferase 28 IU/L (<50); Albumin 4.7 g/dL (3.5-5.0); Albumin Globulin Ratio 1.6 (1.0-2.8); Alkaline Phosphatase 90 U/L (38-126); Blood Urea Nitrogen 16 mg/dL (9-20); Calcium 9.6 mg/dL (8.4-10.2); Carbon Dioxide 25 mmol/L (22-32); Chloride 101 mmol/L (98-107); Cholesterol 209 mg/dL (140-199); Estimated Glomerular Filt Rate > 60 mL/min (>60); Globulin 3.0 g/dL (1.7-4.1); Glucose 88 mg/dL (70-99); HDL Cholesterol 46 mg/dL (40-60); HEMOLYSIS < 15 (0-50); Potassium 4.0 mmol/L (3.4-5.1); Sodium 141 mmol/L (137-145); Total Protein 7.7 g/dL (6.3-8.2); Triglycerides 99 mg/dL (35-150)
[2024-11-07 20:20] LABS: HIV 1 & 2 Ab/Ag 4th Gen Combo NEGATIVE (NEGATIVE); Hep C Virus Ab w/Reflex Quant REACTIVE s/c (NEGATIVE)
== END ==
PROVIDERS: Family Provider Family Medicine; PCP Family Medicine; Referring Provider Family Medicine; Visit Provider Family Medicine
DX: F11.10 Opioid abuse, uncomplicated (principal); F17.200 Nicotine dependence, unspecified, uncomplicated; G45.9 Transient cerebral ischemic attack, unspecified; D64.9 Anemia, unspecified
CPT/HCPCS: 36415; 80053; 80061; 83036; 85027; 86803; 87389; 87522